=== PATIENT | female | born 1935 | race Caucasian/White ===

== ENCOUNTER 2017-09-24 17:04 | Inpatient (IN) | payer BC ==
[~2017-09-24] VITALS: Ht 170.2 cm; Wt 98.2 kg
[2017-09-24 17:26] VITALS: BP 213/88; PULSE 75; RESP 20; O2SAT 100
[2017-09-24] MEDS ORDERED: ONDANSETRON HCL 4 MG/2 ML VIAL IV PUSH ONE (17:30)
[2017-09-24] MEDS ORDERED: MORPHINE SULFATE 4 MG/ML INJ IV PUSH ONE ×2 (17:30→19:00)
[2017-09-24] MEDS ORDERED: HYDROCHLOROTHIAZIDE (17:39)
[2017-09-24] MEDS ORDERED: AMLO5 PO (17:39)
[2017-09-24] MEDS ORDERED: [UNRECOGNIZED DRUG - OTHER] (17:39)
[2017-09-24] MEDS ORDERED: AERIUS (17:39)
[2017-09-24] MEDS ORDERED: CELE200C PO (17:39)
[2017-09-24] MEDS ORDERED: PREV30CA36 PO (17:39)
[2017-09-24] MEDS ORDERED: ALLOPURINOL (17:40)
[2017-09-24] MEDS ORDERED: SODIUM CHLORIDE 0.9% FLUSH 10 ML FLUSH IVF PRN (17:45)
--- NOTE | 2017-09-24 18:31 | PD ---
HPI Chief Complaint: Fall Time Seen by Provider: 17:24 Travel History International Travel<30 days: No Contact w/Intl Traveler<30days: No Traveled to known affect area: No History of Present Illness HPI 53-year-old female came to the emergency room with history of dizziness, near syncopal episode and fall after she was coming out of the shower. Patient lives by herself. Somehow she managed calling 911. When EMS arrived she was wedged between the bathroom door and the corridor. She was complaining of severe right leg pain all the way from the hip down to her ankle. They have to put a splint and put her on a backboard to get her safely out of the house. Patient is from [facility] and speaks mostly Nigerien. However she is able to give a meaningful history. She is also complaining of pain on the upper back and both shoulders. Patient was hypertensive upon arrival. But she also appeared to be very anxious and in pain. She was medicated for pain on route by the EMS. Patient is not on any blood thinners. [facility] Past Medical History Narrative Medical List of her past medical, surgical, social and family history is reviewed from the nursing note. Hypertension: Yes Past Surgical History Appendectomy: Yes Hysterectomy: Yes Social History Alcohol Use: No Tobacco Use: No Substance Use: No Allergies-Medications (Allergen,Severity, Reaction): Coded Allergies: No Known Allergies (Unverified , 09/24/17) Comments no known drug allergies. Reported Meds & Prescriptions Reported Meds & Active Scripts Active Reported [Apoallopurinal] 100 [Aerius] 5 DAILY Prevacid (Lansoprazole) 30 Mg Capdr 30 Mg PO DAILY Celebrex (Celecoxib) 200 Mg Cap 200 Mg PO BID [Teveten Plus] 60,012.5 DAILY Norvasc (Amlodipine Besylate) 5 Mg Tab 5 Mg PO DAILY Narrative Medication List of her home medications reviewed from the nursing note. Review of Systems Except as stated in HPI: all other systems reviewed are Neg Neurologic: Positive: Dizziness Physical Exam Narrative GENERAL: Obese, anxious, moderate to significant distress, boarded SKIN: Focused skin assessment warm/dry. HEAD: Atraumatic. Normocephalic. EYES: Pupils equal and round. No scleral icterus. No injection or drainage. ENT: No nasal bleeding or discharge. Mucous membranes pink and moist. NECK: Trachea midline. No JVD. CARDIOVASCULAR: Regular rate and rhythm. No murmur appreciated. RESPIRATORY: No accessory muscle use. Clear to auscultation. Breath sounds equal bilaterally. GASTROINTESTINAL: Abdomen soft, non-tender, nondistended. Hepatic and splenic margins not palpable. MUSCULOSKELETAL: Right ankle swollen but distal pulses present. No clubbing. No cyanosis. No edema. Decreased range of motion at the right hip, right knee and right ankle joint due to the pain. Patient was rolled off the backboard and the spine was palpated by me. Patient was complaining of midthoracic tenderness on palpation. No step-offs noticed NEUROLOGICAL: Awake and alert. No obvious cranial nerve deficits. Motor grossly within normal limits. Normal speech. PSYCHIATRIC: Appropriate mood and affect; insight and judgment normal. Data Data Last Documented VS Orders Orders Ondansetron Inj (Zofran Inj) (09/24/17 17:30) Morphine Inj (Morphine Inj) (09/24/17 17:30) Hip, Uni(Ap&Lat) W Ap Pelvis (09/24/17 ) Knee, Complete (4vws) (09/24/17 ) Knee, Complete (4vws) (09/24/17 ) Tibia/Fibula (Ap/Lat) (09/24/17 ) Femur (Ap & Lat/2vws) (09/24/17 ) Ct Brain W/O Iv Contrast(Rout) (09/24/17 ) Apply Cervical Collar (09/24/17 17:30) Ct Cerv Spine W/O Contrast (09/24/17 ) Chest, Single Ap (09/24/17 ) Spine, Thoracic-Ap/Lat/Sw(3vw) (09/24/17 ) Electrocardiogram (09/24/17 17:44) Basic Metabolic Panel (Bmp) (09/24/17 17:44) Ckmb (Isoenzyme) Profile (09/24/17 17:44) Complete Blood Count With Diff (09/24/17 17:44) Magnesium (Mg) (09/24/17 17:44) Prothrombin Time / Inr (Pt) (09/24/17 17:44) Troponin I (09/24/17 17:44) Ecg Monitoring (09/24/17 17:44) Bilateral Bp Monitoring (09/24/17 17:44) Iv Access Insert/Monitor (09/24/17 17:44) Oximetry (09/24/17 17:44) Oxygen Administration (09/24/17 17:44) Sodium Chloride 0.9% Flush (Ns Flush) (09/24/17 17:45) Splinting (09/24/17 ) Morphine Inj (Morphine Inj) (09/24/17 19:00) Admit Order (Ed Use Only) (09/24/17 ) Sound Engineering Technician / Telemetry MEIR.Q8H (09/24/17 21:18) Activity Bed Rest (09/24/17 21:18) Notify Dr: Other (09/24/17 21:18) Consult Orthopedic (09/24/17 ) Labs Laboratory Tests Test 09/24/17 19:45 White Blood Count 13.7 TH/MM3 Red Blood Count 4.46 MIL/MM3 Hemoglobin 12.1 GM/DL Hematocrit 37.4 % Mean Corpuscular Volume 84.0 FL Mean Corpuscular Hemoglobin 27.2 PG Mean Corpuscular Hemoglobin Concent 32.3 % Red Cell Distribution Width 13.2 % Platelet Count 257 TH/MM3 Mean Platelet Volume 7.8 FL Neutrophils (%) (Auto) 75.0 % Lymphocytes (%) (Auto) 13.8 % Monocytes (%) (Auto) 8.4 % Eosinophils (%) (Auto) 1.6 % Basophils (%) (Auto) 1.2 % Neutrophils # (Auto) 10.3 TH/MM3 Lymphocytes # (Auto) 1.9 TH/MM3 Monocytes # (Auto) 1.1 TH/MM3 Eosinophils # (Auto) 0.2 TH/MM3 Basophils # (Auto) 0.2 TH/MM3 CBC Comment DIFF FINAL Differential Comment Prothrombin Time 11.0 SEC Prothromb Time International Ratio 1.0 RATIO Blood Urea Nitrogen 18 MG/DL Creatinine 1.59 MG/DL Random Glucose 82 MG/DL Calcium Level 8.8 MG/DL Magnesium Level 1.7 MG/DL Sodium Level 139 MEQ/L Potassium Level 4.0 MEQ/L Chloride Level 108 MEQ/L Carbon Dioxide Level 20.1 MEQ/L Anion Gap 11 MEQ/L Estimat Glomerular Filtration Rate 31 ML/MIN Total Creatine Kinase 56 U/L Troponin I LESS THAN 0.02 NG/ML MDM Medical Decision Making Medical Screen Exam Complete: Yes Emergency Medical Condition: Yes Medical Record Reviewed: Yes Interpretation(s) Twelve-lead EKG was reviewed by me. Normal sinus rhythm, left axis deviation, nonspecific ST-T wave changes. Heart rate of 63 bpm. Differential Diagnosis ankle fracture, knee fracture, hip fracture, intracranial bleed, cervical fracture Narrative Course 6:29 PM patient was medicated for pain. I have ordered x-rays of the lower extremities and CAT scan of her head and C-spine. For the x-ray and CAT scan to be done and resulted. Patient most probably will be signed off to the oncoming ER physician. 6:52 PM x-rays are done and I reviewed them myself. The only traumatic injury is right bimalleolar fracture. I have ordered for a Bhatt splint and awaiting for the orthopedist to call back. Official report is pending. CT scan waiting to be done. I have ordered some more pain medication. Procedures EKG Prior to Arrival: No Diagnosis Primary Impression: Near syncope Additional Impression: Fall Qualified Codes: W19.XXXA - Unspecified fall, initial encounter Admitting Information Admitting Physician Requests: Admit Scripts Enoxaparin Inj (Lovenox Inj) 40 Mg/0.4 Ml Syr 40 MG SQ Q24H for Prevent Blood Clot, #30 INJECTION Prov: Dewey Leal MD 09/28/17 Hydrocodone-Acetaminophen (Hydrocodone-Acetaminophen) 7.5 Mg-325 Mg Tab 1 TAB PO Q4H Y for PAIN, #60 TAB 0 Refills Prov: Vel Ward/Laboratory Secretary CECY 09/25/17 Zayra Fierro MD Sep 24, 2017 18:31
--- NOTE | 2017-09-24 18:51 | RADRPT ---
EXAM DATE/TIME: 09/24/2017 17:51 [facility] COMPARISON: No previous studies available for comparison. INDICATIONS : Fall in shower, pain in chest, short of breath. MEDICAL HISTORY : Hypertension. SURGICAL HISTORY : Hysterectomy. Appendectomy. ENCOUNTER: Initial ACUITY: 1 day PAIN SCORE: 0/10 LOCATION: Bilateral chest FINDINGS: A single view of the chest demonstrates the lungs to be symmetrically aerated without evidence of mas s, infiltrate or effusion. No evidence of pneumothorax. The cardiomediastinal contours are unremark able. Osseous structures are intact. CONCLUSION: The lungs are clear. Alfred Abraham MD on September 24, 2017 at 18:49 Board Certified Radiologist. This report was verified electronically.
--- NOTE | 2017-09-24 18:52 | RADRPT ---
EXAM DATE/TIME: 09/24/2017 17:52 [facility] COMPARISON: No previous studies available for comparison. INDICATIONS : Right hip pain after falling today. MEDICAL HISTORY : Hypertension. SURGICAL HISTORY : Appendectomy. Hysterectomy. Right total hip replacement. ENCOUNTER: Initial ACUITY: 1 day PAIN SCORE: 5/10 LOCATION: Right hip FINDINGS: 2 views of the right hip with AP view of the pelvis. There is a non-cemented unipolar total hip arth roplasty on the right side with intact hardware and normal alignment. The bony pelvic ring is grossl y intact the proximal left femur is intact. No radiopaque foreign bodies. CONCLUSION: Intact right total hip arthroplasty. The bony pelvic ring is intact. Alfred Abraham MD on September 24, 2017 at 18:49 Board Certified Radiologist. This report was verified electronically.
--- NOTE | 2017-09-24 18:53 | RADRPT ---
EXAM DATE/TIME: 09/24/2017 17:53 [facility] COMPARISON: No previous studies available for comparison. INDICATIONS : Right femur pain after falling today. MEDICAL HISTORY : Hypertension. SURGICAL HISTORY : Appendectomy. Hysterectomy. Right total hip replacement. ENCOUNTER: Initial ACUITY: 1 day PAIN SCORE: 5/10 LOCATION: Right femur FINDINGS: Noncemented unipolar total hip arthroplasty with intact hardware and normal alignment. The shaft of the femur is intact. No fractures seen. The suprapatellar soft tissues are normal in thickness. No radiopaque foreign bodies. CONCLUSION: No evidence of recent bony injury. Alfred Abraham MD on September 24, 2017 at 18:50 Board Certified Radiologist. This report was verified electronically.
--- NOTE | 2017-09-24 18:54 | RADRPT ---
EXAM DATE/TIME: 09/24/2017 17:55 [facility] COMPARISON: No previous studies available for comparison. INDICATIONS : Right knee pain after falling today. MEDICAL HISTORY : Hypertension. SURGICAL HISTORY : Appendectomy. Hysterectomy. Right total hip replacement. ENCOUNTER: Initial ACUITY: 1 day PAIN SCORE: 5/10 LOCATION: Right knee FINDINGS: There is mild narrowing of the medial compartment without osteophyte formation. Tibial plateau femor al condyles are intact. The suprapatellar soft tissues are normal in thickness. No fracture seen. No foreign bodies. CONCLUSION: 1. No evidence of recent injury. 2. Mild medial compartment joint space narrowing. Alfred Abraham MD on September 24, 2017 at 18:51 Board Certified Radiologist. This report was verified electronically.
--- NOTE | 2017-09-24 18:56 | RADRPT ---
EXAM DATE/TIME: 09/24/2017 17:58 [facility] COMPARISON: No previous studies available for comparison. INDICATIONS : Back pain after falling in the shower today. MEDICAL HISTORY : Hypertension. SURGICAL HISTORY : Hysterectomy. Appendectomy. ENCOUNTER: Initial ACUITY: 1 day PAIN SCORE: 5/10 LOCATION: Bilateral back FINDINGS: There is normal alignment of the vertebral bodies of the thoracic spine in lateral projection. Mild curvature of the lower thoracic spine convex towards the right. Multilevel discogenic degenerative c hanges with bridging paravertebral ossification from T6-T11. No evidence of fracture or compression deformity. Pedicles are seen at all levels. CONCLUSION: 1. No evidence of compression deformity or spondylolisthesis. 2. Moderately advanced paravertebral ossification related to discogenic changes. Alfred Abraham MD on September 24, 2017 at 18:52 Board Certified Radiologist. This report was verified electronically.
[2017-09-24 19:06] VITALS: BP 157/87; PULSE 62; RESP 18; TEMP 99.4; O2SAT 100
--- NOTE | 2017-09-24 19:18 | PD ---
Physical Exam Date Seen by Provider: Sep 24, 2017 Time Seen by Provider: 19:17 Narrative Accepted in transfer of care from Dr. Fierro Data Data Last Documented VS Vital Signs Date Time Temp Pulse Resp B/P (MAP) Pulse Ox O2 Delivery O2 Flow Rate FiO2 09/24/17 19:06 99.4 62 18 157/87 (110) 100 Room Air Orders Orders Ondansetron Inj (Zofran Inj) (09/24/17 17:30) Morphine Inj (Morphine Inj) (09/24/17 17:30) Hip, Uni(Ap&Lat) W Ap Pelvis (09/24/17 ) Knee, Complete (4vws) (09/24/17 ) Knee, Complete (4vws) (09/24/17 ) Tibia/Fibula (Ap/Lat) (09/24/17 ) Femur (Ap & Lat/2vws) (09/24/17 ) Ct Brain W/O Iv Contrast(Rout) (09/24/17 ) Apply Cervical Collar (09/24/17 17:30) Ct Cerv Spine W/O Contrast (09/24/17 ) Chest, Single Ap (09/24/17 ) Spine, Thoracic-Ap/Lat/Sw(3vw) (09/24/17 ) Electrocardiogram (09/24/17 17:44) Basic Metabolic Panel (Bmp) (09/24/17 17:44) Ckmb (Isoenzyme) Profile (09/24/17 17:44) Complete Blood Count With Diff (09/24/17 17:44) Magnesium (Mg) (09/24/17 17:44) Prothrombin Time / Inr (Pt) (09/24/17 17:44) Troponin I (09/24/17 17:44) Ecg Monitoring (09/24/17 17:44) Bilateral Bp Monitoring (09/24/17 17:44) Iv Access Insert/Monitor (09/24/17 17:44) Oximetry (09/24/17 17:44) Oxygen Administration (09/24/17 17:44) Sodium Chloride 0.9% Flush (Ns Flush) (09/24/17 17:45) Splinting (09/24/17 ) Morphine Inj (Morphine Inj) (09/24/17 19:00) Labs Laboratory Tests Test 09/24/17 19:45 White Blood Count 13.7 TH/MM3 Red Blood Count 4.46 MIL/MM3 Hemoglobin 12.1 GM/DL Hematocrit 37.4 % Mean Corpuscular Volume 84.0 FL Mean Corpuscular Hemoglobin 27.2 PG Mean Corpuscular Hemoglobin Concent 32.3 % Red Cell Distribution Width 13.2 % Platelet Count 257 TH/MM3 Mean Platelet Volume 7.8 FL Neutrophils (%) (Auto) 75.0 % Lymphocytes (%) (Auto) 13.8 % Monocytes (%) (Auto) 8.4 % Eosinophils (%) (Auto) 1.6 % Basophils (%) (Auto) 1.2 % Neutrophils # (Auto) 10.3 TH/MM3 Lymphocytes # (Auto) 1.9 TH/MM3 Monocytes # (Auto) 1.1 TH/MM3 Eosinophils # (Auto) 0.2 TH/MM3 Basophils # (Auto) 0.2 TH/MM3 CBC Comment DIFF FINAL Differential Comment Prothrombin Time 11.0 SEC Prothromb Time International Ratio 1.0 RATIO Blood Urea Nitrogen 18 MG/DL Creatinine 1.59 MG/DL Random Glucose 82 MG/DL Calcium Level 8.8 MG/DL Magnesium Level 1.7 MG/DL Sodium Level 139 MEQ/L Potassium Level 4.0 MEQ/L Chloride Level 108 MEQ/L Carbon Dioxide Level 20.1 MEQ/L Anion Gap 11 MEQ/L Estimat Glomerular Filtration Rate 31 ML/MIN Total Creatine Kinase 56 U/L Troponin I LESS THAN 0.02 NG/ML [facility] Medical Record Reviewed: Yes Supervised Visit with ISAC: No Interpretation(s) Last Impressions Tibia/Fibula X-Ray 09/24/17 0000 Signed Impressions: Service Date/Time: Sunday, September 24, 2017 18:02 - CONCLUSION: Trimalleolar ankle fracture. Alfred Abraham MD Thoracic Spine X-Ray 09/24/17 0000 Signed Impressions: Service Date/Time: Sunday, September 24, 2017 17:58 - CONCLUSION: 1. No evidence of compression deformity or spondylolisthesis. 2. Moderately advanced paravertebral ossification related to discogenic changes. Alfred Abraham MD Knee X-Ray 09/24/17 0000 Signed Impressions: Service Date/Time: Sunday, September 24, 2017 18:13 - CONCLUSION: No evidence of recent bony injury. Alfred Abraham MD Knee X-Ray 09/24/17 0000 Signed Impressions: Service Date/Time: Sunday, September 24, 2017 17:55 - CONCLUSION: 1. No evidence of recent injury. 2. Mild medial compartment joint space narrowing. Alfred Abraham MD Hip and Pelvis X-Ray 09/24/17 0000 Signed Impressions: Service Date/Time: Sunday, September 24, 2017 17:52 - CONCLUSION: Intact right total hip arthroplasty. The bony pelvic ring is intact. Alfred Abraham MD Head CT 09/24/17 0000 Signed Impressions: Service Date/Time: Sunday, September 24, 2017 18:19 - CONCLUSION: Age-appropriate atrophy. No acute findings. Alfred Abraham MD Femur X-Ray 09/24/17 0000 Signed Impressions: Service Date/Time: Sunday, September 24, 2017 17:53 - CONCLUSION: No evidence of recent bony injury. Alfred Abraham MD Chest X-Ray 09/24/17 0000 Signed Impressions: Service Date/Time: Sunday, September 24, 2017 17:51 - CONCLUSION: The lungs are clear. Alfred Abraham MD Cervical Spine CT 09/24/17 0000 Signed Impressions: Service Date/Time: Sunday, September 24, 2017 18:19 - CONCLUSION: 1. No evidence of fracture or subluxation. 2. Multilevel degenerative changes. Alfred Abraham MD CBC & BMP Diagram 09/24/17 19:45 Calcium Level 8.8, Magnesium Level 1.7 Vital Signs Date Time Temp Pulse Resp B/P (MAP) Pulse Ox O2 Delivery O2 Flow Rate FiO2 09/24/17 19:06 99.4 62 18 157/87 (110) 100 Room Air 09/24/17 17:26 75 20 213/88 (129) 100 Differential Diagnosis Accepted in transfer of care from Dr. Fierro; please refer to her dictation Narrative Course Accepted in transfer of care from Dr. Fierro for follow up pending labs xray ct and admission; per Dr Fierro she has already discussed ankle fx w orthopedist Dr Ambriz and splinted ankle Diagnosis Primary Impression: Near syncope Additional Impressions: Fall Qualified Codes: W19.XXXA - Unspecified fall, initial encounter Trimalleolar fracture Qualified Codes: S82.851A - Displaced trimalleolar fracture of right lower leg , initial encounter for closed fracture Admitting Information Admitting Physician Requests: Admit Corinne Melo MD Sep 24, 2017 19:18
--- NOTE | 2017-09-24 19:20 | RADRPT ---
EXAM DATE/TIME: 09/24/2017 18:02 [facility] COMPARISON: No previous studies available for comparison. INDICATIONS : Left tibia pain after falling today. MEDICAL HISTORY : Hypertension. SURGICAL HISTORY : Hysterectomy. Appendectomy. ENCOUNTER: Initial ACUITY: 1 day PAIN SCORE: 5/10 LOCATION: Right tib fib FINDINGS: There is a trimalleolar fracture of the ankle with mild displacement and angulation. The remainder o f the shaft of the tibia and fibula is intact. No radiopaque foreign bodies. CONCLUSION: Trimalleolar ankle fracture. Alfred Abraham MD on September 24, 2017 at 19:18 Board Certified Radiologist. This report was verified electronically.
--- NOTE | 2017-09-24 19:21 | RADRPT ---
EXAM DATE/TIME: 09/24/2017 18:13 [facility] COMPARISON: No previous studies available for comparison. INDICATIONS : Left knee pain after falling today. MEDICAL HISTORY : Hypertension. SURGICAL HISTORY : Appendectomy. Hysterectomy. Right total hip replacement. ENCOUNTER: Initial ACUITY: 1 day PAIN SCORE: 5/10 LOCATION: Left knee FINDINGS: Four view examination of the left knee demonstrates no evidence of fracture or dislocation. Bony min eralization is normal. The articular surfaces are intact. The suprapatellar soft tissues have a nor mal configuration. CONCLUSION: No evidence of recent bony injury. Alfred Abraham MD on September 24, 2017 at 19:19 Board Certified Radiologist. This report was verified electronically.
[2017-09-24 20:01] LABS: AUTOMATED NEUTROPHIL # 10.3 TH/MM3 (1.8-7.7); BASOPHIL # 0.2 TH/MM3 (0-0.2); BASOPHIL % 1.2 % (0.0-2.0); EOSINOPHIL # 0.2 TH/MM3 (0-0.4); EOSINOPHIL % 1.6 % (0.0-4.0); HEMATOCRIT 37.4 % (35.0-46.0); HEMO FLAGS DIFF FINAL; LYMPH % 13.8 % (9.0-44.0); LYMPHOCYTE # 1.9 TH/MM3 (1.0-4.8); MEAN CORPUSCULAR HEMOGLOBIN 27.2 PG (27.0-34.0); MEAN CORPUSCULAR HGB CONC 32.3 % (32.0-36.0); MONO % 8.4 % (0.0-8.0); PLATELET COUNT 257 TH/MM3 (150-450); RED BLOOD COUNT 4.46 MIL/MM3 (4.00-5.30); RED CELL DISTRIBUTION WIDTH 13.2 % (11.6-17.2); WHITE BLOOD COUNT 13.7 TH/MM3 (4.0-11.0)
--- NOTE | 2017-09-24 20:03 | RADRPT ---
EXAM DATE/TIME: 09/24/2017 18:19 [facility] COMPARISON: No previous studies available for comparison. INDICATIONS : Fell in shower,dizzy RADIATION DOSE: 56.35 CTDIvol (mGy) MEDICAL HISTORY : Hypertension. SURGICAL HISTORY : Appendectomy. Hysterectomy. ENCOUNTER: Initial ACUITY: 1 day PAIN SCALE: 3/10 LOCATION: cranial TECHNIQUE: Multiple contiguous axial images were obtained of the head. Using automated exposure control and adj ustment of the mA and/or kV according to patient size, radiation dose was kept as low as reasonably a chievable to obtain optimal diagnostic quality images. DICOM format image data is available electro nically for review and comparison. FINDINGS: CEREBRUM: The ventricles are normal for age. No evidence of midline shift, mass lesion, hemorrhage or acute in farction. No extra-axial fluid collections are seen. POSTERIOR FOSSA: The cerebellum and brainstem are intact. The 4th ventricle is midline. The cerebellopontine angle i s unremarkable. EXTRACRANIAL: The visualized portion of the orbits is intact. SKULL: The calvaria is intact. No evidence of skull fracture. CONCLUSION: Age-appropriate atrophy. No acute findings. Alfred Abraham MD on September 24, 2017 at 19:59 Board Certified Radiologist. This report was verified electronically.
[2017-09-24 20:21] LABS: ANION GAP 11 MEQ/L (5-15); BICARBONATE 20.1 MEQ/L (21.0-32.0); BLOOD UREA NITROGEN 18 MG/DL (7-18); CHLORIDE 108 MEQ/L (98-107); GLOMERULAR FILTRATION RATE 31 ML/MIN (>89); MAGNESIUM 1.7 MG/DL (1.5-2.5); SODIUM (NA) 139 MEQ/L (136-145)
[2017-09-24 20:26] LABS: CREATINE KINASE 56 U/L (26-192)
--- NOTE | 2017-09-24 20:57 | RADRPT ---
EXAM DATE/TIME: 09/24/2017 18:19 [facility] COMPARISON: No previous studies available for comparison. INDICATIONS : Fell in shower,dizzy RADIATION DOSE: 42.44 CTDIvol (mGy) MEDICAL HISTORY : Hypertension. SURGICAL HISTORY : Appendectomy. Hysterectomy. ENCOUNTER: Initial ACUITY: 1 day PAIN SCALE: 3/10 LOCATION: neck TECHNIQUE: Volumetric scanning of the cervical spine was performed. Multiplanar reconstructions in the sagittal, coronal and oblique axial planes were performed. Using automated exposure control and adjustment o f the mA and/or kV according to patient size, radiation dose was kept as low as reasonably achievable to obtain optimal diagnostic quality images. DICOM format image data is available electronically f or review and comparison. FINDINGS: Osseous structures are osteopenic. There is straightening of the cervical lordosis from C2-C4. Mild narrowing of the C4-5 and C5-6 interspace with prominent anterior and posterior osteophytes. No khadijah dence of compression deformity. Moderate degenerative changes in the facet joints without evidence o f locked or perched facets. The atlantoaxial articulation is intact. Mild curvature of the cervical spine convex towards the left. C2-C3: No fracture seen. The neural foramina are patent. C3-C4: No fracture seen. Mild left sided bony neural foraminal stenosis. C4-C5: No fracture seen. The neural foramina are patent. C5-C6: No fracture seen. The neural foramina are patent. C6-C7: No fracture seen. The neural foramina are patent. C7-T1: No fracture seen. The neural foramina are patent. CONCLUSION: 1. No evidence of fracture or subluxation. 2. Multilevel degenerative changes. Alfred Abraham MD on September 24, 2017 at 20:02 Board Certified Radiologist. This report was verified electronically.
[2017-09-24] MEDS ORDERED: SODIUM CHLORIDE 0.9% FLUSH 10 ML FLUSH IV FLUSH PRN (22:00)
--- NOTE | 2017-09-24 22:06 | HHI.HP ---
[facility] Service [facility] Primary Care Physician Unknown Admission Diagnosis near syncope; trimalleolar fracture Diagnoses: Travel History International Travel<30 Days: No Contact w/Intl Traveler <30 Da: No Traveled to Known Affected Are: No History of Present Illness 82-year-old female got to the emergency department by EMS after suffering a fall in the shower. The patient reports that she has no memory of the fall, and is unsure if she lost consciousness. She states one moment she was standing up in the shower and the next she was on the ground. She complains of persistent pain in her right hip and right leg. X-rays performed in the emergency department significant for a trimalleolar ankle fracture. X-ray of the pelvis with no bony abnormalities. The patient had a similar syncopal episode approximately 2-3 years ago and cannot remember what workup was done at that time. She denies significant cardiovascular or neurologic history. She is a poor historian but believes she has a history of hypertension and hyperlipidemia. Review of Systems Denies fever or chills Denies blurry vision, otorrhea, rhinorrhea Denies sore throat and cough No chest pain, palpitations, shortness of breath No abdominal pain Denies constipation/diarrhea/nausea/vomiting Right hip and right lower extremity pain No rashes Past Family Social History Past Medical History Hypertension Hyperlipidemia Past Surgical History Right hip replacement Appendectomy Hysterectomy Reported Medications Reported Meds & Active Scripts Active Reported [Apoallopurinal] 100 [Aerius] 5 DAILY Prevacid (Lansoprazole) 30 Mg Capdr 30 Mg PO DAILY Celebrex (Celecoxib) 200 Mg Cap 200 Mg PO BID [Teveten Plus] 60,012.5 DAILY Norvasc (Amlodipine Besylate) 5 Mg Tab 5 Mg PO DAILY Allergies: Coded Allergies: No Known Allergies (Unverified , 09/24/17) Family History No family history of heart disease or diabetes Social History Denies tobacco, alcohol and illicit drugs Physical Exam Vital Signs Vital Signs Date Time Temp Pulse Resp B/P (MAP) Pulse Ox O2 Delivery O2 Flow Rate FiO2 09/24/17 19:06 99.4 62 18 157/87 (110) 100 Room Air 09/24/17 17:26 75 20 213/88 (129) 100 Physical Exam GENERAL: Obese female lying in bed SKIN: No rashes, ecchymoses or lesions. Cool and dry. HEAD: Atraumatic. Normocephalic. No temporal or scalp tenderness. EYES: Pupils equal round and reactive. Extraocular motions intact. No scleral icterus. No injection or drainage. ENT: Nose without bleeding, purulent drainage or septal hematoma. Throat without erythema, tonsillar hypertrophy or exudate. Uvula midline. Airway patent. NECK: Trachea midline. No JVD or lymphadenopathy. Supple, nontender, no meningeal signs. CARDIOVASCULAR: Regular rate and rhythm without murmurs, gallops, or rubs. RESPIRATORY: Clear to auscultation. Breath sounds equal bilaterally. No wheezes , rales, or rhonchi. GASTROINTESTINAL: Abdomen soft, non-tender, nondistended. No hepato-splenomegaly , or palpable masses. No guarding. MUSCULOSKELETAL: Right lower extremity splinted. Foot is neurovascularly intact. Right lateral upper thigh and hip tender to palpation. No gross deformities or ecchymoses. NEUROLOGICAL: Awake and alert. Cranial nerves II through XII intact. Motor and sensory grossly within normal limits. Normal speech. Laboratory Laboratory Tests Test 09/24/17 19:45 White Blood Count 13.7 Red Blood Count 4.46 Hemoglobin 12.1 Hematocrit 37.4 Mean Corpuscular Volume 84.0 Mean Corpuscular Hemoglobin 27.2 Mean Corpuscular Hemoglobin Concent 32.3 Red Cell Distribution Width 13.2 Platelet Count 257 Mean Platelet Volume 7.8 Neutrophils (%) (Auto) 75.0 Lymphocytes (%) (Auto) 13.8 Monocytes (%) (Auto) 8.4 Eosinophils (%) (Auto) 1.6 Basophils (%) (Auto) 1.2 Neutrophils # (Auto) 10.3 Lymphocytes # (Auto) 1.9 Monocytes # (Auto) 1.1 Eosinophils # (Auto) 0.2 Basophils # (Auto) 0.2 CBC Comment DIFF FINAL Differential Comment Prothrombin Time 11.0 Prothromb Time International Ratio 1.0 Blood Urea Nitrogen 18 Creatinine 1.59 Random Glucose 82 Calcium Level 8.8 Magnesium Level 1.7 Sodium Level 139 Potassium Level 4.0 Chloride Level 108 Carbon Dioxide Level 20.1 Anion Gap 11 Estimat Glomerular Filtration Rate 31 Total Creatine Kinase 56 Troponin I LESS THAN 0.02 Result Diagram: 09/24/17194409/24/171944 Caprini VTE Risk Assessment Courtney VTE Risk Assessment: Mod/High Risk (score >= 2) Edrini Risk Assessment Model Point Value = 1 Point Value = 2 Point Value = 3 Point Value = 5 Age 41-60 Minor surgery BMI > 25 kg/m2 Swollen legs Varicose veins or History of unexplained or recurrent spontaneous Oral contraceptives or hormone replacement Sepsis (< 1 month) Serious lung disease, including pneumonia (< 1 month) Abnormal pulmonary function Acute myocardial infarction Congestive heart failure (< 1 month) History of inflammatory bowel disease Medical patient at bed rest Age 61-74 Arthroscopic surgery Major open surgery (> 45 min) Laparoscopic surgery (> 45 min) Malignancy Confined to bed (> 72 hours) Immobilizing plaster cast Central venous access Age >= 75 History of VTE Family history of VTE Factor V Leiden Prothrombin [id number] Lupus anticoagulant Anticardiolipin antibodies Elevated serum homocysteine Heparin-induced thrombocytopenia Other congenital or acquired thrombophilia Stroke (< 1 month) Elective arthroplasty Hip, pelvis, or leg fracture Acute spinal cord injury (< 1 month) Prophylaxis Regimen Total Risk Factor Score Risk Level Prophylaxis Regimen 0-1 Low Early ambulation 2 Moderate Order ONE of the following: *Sequential Compression Device (SCD) *Heparin 5000 units SQ BID 3-4 Higher Order ONE of the following medications: *Heparin 5000 units SQ TID *Enoxaparin/Lovenox 40 mg SQ daily (WT < 150 kg, CrCl > 30 mL/min) *Enoxaparin/Lovenox 30 mg SQ daily (WT < 150 kg, CrCl > 10-29 mL/min) *Enoxaparin/Lovenox 30 mg SQ BID (WT < 150 kg, CrCl > 30 mL/min) AND/OR *Sequential Compression Device (SCD) 5 or more Highest Order ONE of the following medications: *Heparin 5000 units SQ TID (Preferred with Epidurals) *Enoxaparin/Lovenox 40 mg SQ daily (WT < 150 kg, CrCl > 30 mL/min) *Enoxaparin/Lovenox 30 mg SQ daily (WT < 150 kg, CrCl > 10-29 mL/min) *Enoxaparin/Lovenox 30 mg SQ BID (WT < 150 kg, CrCl > 30 mL/min) AND *Sequential Compression Device (SCD) Assessment and Plan Assessment and Plan 82-year-old female with past medical history significant for hypertension and hyperlipidemia presents after syncopal episode where she sustained a trimalleolar fracture. 1. Trimalleolar fracture of right extremity Orthopedic surgery consulted, anticipate surgical repair in the morning Nothing by mouth Morphine for pain 2. Syncopal episode EKG with nonspecific ST-T wave changes. Heart rate 63. Normal sinus rhythm. Reviewed by me Syncopal workup pending including echo and carotid ultrasound 3. Hypertension/GERD Continue home medications FEN NPO NS at 100 cc/hr Electrolytes: Replete when necessary Holding pharmacologic anticoagulation in anticipation of procedure tomorrow Physician Certification 2 Midnight Certification Type: Admission for Inpatient Services Order for Inpatient Services The services are ordered in accordance with Medicare regulations or non- Medicare payer requirements, as applicable. In the case of services not specified as inpatient-only, they are appropriately provided as inpatient services in accordance with the 2-midnight benchmark. Estimated LOS (days): 2 2 days is the estimated time the patient will need to remain in the hospital, assuming treatment plan goals are met and no additional complications. Post-Hospital Plan: Not yet determined Alessandra Wilkerson MD Sep 24, 2017 22:06
[2017-09-24 22:28] VITALS: BP 172/74; PULSE 68; RESP 18; O2SAT 99
[2017-09-24] MEDS: SODIUM CHLOR 0.9% 1000 ML INJ 1,000 ML IV SCH (22:34)
--- NOTE | 2017-09-24 22:56 | RADRPT ---
EXAM DATE/TIME: 09/24/2017 21:58 [facility] COMPARISON: No previous studies available for comparison. INDICATIONS : Syncope. MEDICAL HISTORY : Hypertension. SURGICAL HISTORY : Appendectomy. Hysterectomy. Right hip surgery. ENCOUNTER: Initial ACUITY: 1 day PAIN SCORE: 3/10 LOCATION: Bilateral neck PEAK SYSTOLIC VELOCITIES (cm/sec): ICA/CCA RATIO: Right: N/A Left: 2.7 ICA: Right: N/A Left: 184.4 CCA: Right: 75.8 Left: 66.9 ECA: Right: 170.1 Left: 67.0 VERTEBRAL: Right: 62.9 antegrade Left: 45.1 antegrade Elevated flow velocities and ICA/CCA ratios have been found to correlate with increased degrees of vessel stenosis, calculated as percentage of diameter relative to a normal segment of distal ICA/CCA FINDINGS: This is a limited quality examination with poor visualization of the internal carotid artery on both sides related to body habitus. Unable to record a velocity tracing in the mid right internal carotid artery on either color or spectral Doppler. The velocity in the left internal carotid artery is eb vated and the velocity ratio is elevated. CONCLUSION: 1. Nondiagnostic study on the right side and cannot confirm the presence of internal carotid artery f low. 2. Abnormal hemodynamic profile on the left side characteristic of 50-70% stenosis. 3. May consider performing either CTA or MRA to further evaluate for the presence of flow in the righ t carotid and to characterize the severity of disease on left side. Alfred Abraham MD on September 24, 2017 at 22:52 Board Certified Radiologist. This report was verified electronically.
[2017-09-24] MEDS: MORPHINE SULFATE 2 MG/ML INJ IV PUSH PRN (23:11)
[2017-09-25] VITALS (7 sets, daily range): BP systolic 118–156; BP diastolic 51–68; PULSE 64–88; RESP 17–19; TEMP 95.9–100; O2SAT 93–99
[2017-09-25] MEDS ORDERED: LACTATED RINGER'S 1000 ML IV PRN (02:30)
[2017-09-25] MEDS ORDERED: METOPROLOL TARTRATE 25 MG TAB PO PRN (02:30)
[2017-09-25] MEDS ORDERED: INSULIN HUMAN REGULAR 1,000 UNITS/10 ML VIAL SQ PRN (02:30)
[2017-09-25] MEDS ORDERED: POVIDONE IODINE 5% (ANTISEPSIS KIT) 4 APPLICATIONS EACH NARE PRN (02:30)
[2017-09-25] MEDS ORDERED: CHLORHEXIDINE GLUCONATE 2 % 1 PACK (2 CLOTHS) TOPICAL PRN (02:30)
[2017-09-25] MEDS ORDERED: SODIUM CHLORID 0.9% 500 ML IV PRN (02:30)
[2017-09-25] MEDS: MORPHINE SULFATE 2 MG/ML INJ IV PUSH PRN (05:24)
[2017-09-25 05:35] LABS: AUTOMATED NEUTROPHIL # 6.4 TH/MM3 (1.8-7.7); BASOPHIL # 0.1 TH/MM3 (0-0.2); BASOPHIL % 1.3 % (0.0-2.0); EOSINOPHIL # 0.4 TH/MM3 (0-0.4); EOSINOPHIL % 3.6 % (0.0-4.0); HEMATOCRIT 35.6 % (35.0-46.0); HEMO FLAGS DIFF FINAL; LYMPH % 17.7 % (9.0-44.0); LYMPHOCYTE # 1.8 TH/MM3 (1.0-4.8); MEAN CELL VOLUME 84.9 FL (80.0-100.0); MEAN CORPUSCULAR HEMOGLOBIN 27.8 PG (27.0-34.0); MEAN CORPUSCULAR HGB CONC 32.8 % (32.0-36.0); MONO % 12.4 % (0.0-8.0); PLATELET COUNT 219 TH/MM3 (150-450); RED BLOOD COUNT 4.19 MIL/MM3 (4.00-5.30); RED CELL DISTRIBUTION WIDTH 13.5 % (11.6-17.2); WHITE BLOOD COUNT 9.9 TH/MM3 (4.0-11.0)
[2017-09-25 06:05] LABS: BICARBONATE 21.7 MEQ/L (21.0-32.0); POTASSIUM 4.1 MEQ/L (3.5-5.1)
[2017-09-25] MEDS ORDERED: ACETAMINOPHEN 1000 MG/100 ML 0 ML IV ONE (06:15)
--- NOTE | 2017-09-25 06:58 | PD.ORT.PN ---
Subjective Subjective Remarks s/p fall at home in shower reports right wrist and knee pain Objective Vitals Vital Signs Date Time Temp Pulse Resp B/P (MAP) Pulse Ox O2 Delivery O2 Flow Rate FiO2 09/25/17 00:45 99.8 65 18 156/68 (97) 98 09/25/17 00:03 64 09/24/17 22:48 09/24/17 22:28 68 18 172/74 (106) 99 Room Air 09/24/17 19:06 99.4 62 18 157/87 (110) 100 Room Air 09/24/17 17:26 75 20 213/88 (129) 100 Result Diagram: 09/25/175 09/25/175 Other Results Laboratory Tests Test 09/24/17 19:45 Prothromb Time International Ratio 1.0 RATIO Prothrombin Time 11.0 SEC (9.8-11.6) Objective Remarks RLE: +short leg splint. intact. NVI. mild pain to touch at right knee and patella Assessment & Plan Assessment and Plan 1) Right Bimalleolar Ankle Fx -npo -consents -surgery today 2) Right knee pain -XR negative Vel Ward/Branch Office Manager CECY Sep 25, 2017 06:58
[2017-09-25] MEDS ORDERED: GENTAMICIN SULFATE 80 MG/2 ML VIAL ONE (07:10)
[2017-09-25] MEDS ORDERED: SODIUM CHLOR 0.9% 250 ML INJ 250 ML ONE (07:10)
[2017-09-25] MEDS ORDERED: VANCOMYCIN HCL 1000 MG VIAL ONE (07:10)
[2017-09-25] MEDS ORDERED: HYDR-3580 PO (07:17)
[2017-09-25] MEDS ORDERED: WHEEMIS3 (07:17)
[2017-09-25] MEDS ORDERED: WALKER/ADULT/FO1 MIS (07:17)
--- NOTE | 2017-09-25 07:18 | HHI.FF ---
Face to Face Verification Diagnosis: (1) Trimalleolar fracture Physical Therapy Gait training, Safety evaluation Right LE Weight Bearing: Non WB Nursing Dressing Changes: Do not change dressing I have seen patient Zuly Price on 09/25/17. My clinical findings support the need for the requested home health care services because: Ltd mobility - disease progression I certify that my clinical findings support that this patient is homebound because: Post-op weakness Vel Ward/Molding Room Supervisor PA Sep 25, 2017 07:18
[2017-09-25] MEDS ORDERED: ceFAZolin 2 GM PREMIX 50 ML ONE (07:39)
--- NOTE | 2017-09-25 08:12 | PD.OP ---
cc: Ihsan Bhatt MD Operative Report Date of Surgery: Sep 25, 2017 Preoperative Diagnosis: Right ankle trimalleolar fracture Postoperative Diagnosis: Procedure: Open reduction internal fixation right medial and lateral malleolus fractures Anesthesia: Gen. Surgeon: Ihsan Bhatt Deckhand Shrimp Boat(s): CARLENE Rose PA-C The surgical procedure was assisted by my physician assistant to the vice president. My P.A. presence was necessary throughout this case for the manipulation and positioning of the surgical extremity. My P.A. was assisting me throughout the duration of this procedure. The skill set of a physician assistant to the vice president was medically necessary to complete this procedure. During the surgical case the surgical orderly was working at the back table and the physician assistant to the vice president was directly assisting me. Operation and Findings: Implants used :ITS Patient was seen and evaluated preoperatively and found to have a displaced right trimalleolar ankle fracture. Informed consent was obtained after a detailed discussion of risk and benefits of surgery. The operative site was marked. Patient was brought to the OR, placed on the OR table, and given IV sedation and general endotracheal anesthesia. IV antibiotics were given preoperatively. A timeout procedure was performed. The operative leg was prepped with alcohol followed by Hibiclens and draped in the usual sterile fashion. Attention was turned towards the distal fibula. A four-inch incision was made over the distal fibula. The subcutaneous tissue was dissected with Bovie. The fracture site was visualized. The fracture site was cleaned with curets. The fracture was now reduced. The fracture keyed into anatomic alignment. K-wires were used to h old provisional fixation. A lag screw was placed to compress fracture. A plate was selected and contoured to fit the distal fibula. The plate was provisionally held to bone with K-wires. 3.5 cortical screws were used to compress the plate to bone. Multiple screws were placed above and below the fracture. Next attention was turned towards the medial malleolus. The medial malleolus was reduced into anatomic alignment with a percutaneous technique. K wires were used to hold provisional fixation. 2 guidepins for the 4.0 cannulated screws were placed in a retrograde fashion across the fracture. Fluoroscopy was used to confirm guidepin placement. Cannulated drill was placed over the guidepin. 2 appropriate length screws were now placed. Good compression was applied. Fluoroscopy confirmed well aligned fracture with well-placed hardware. Next, attention was turned to the syndesmosis. The syndesmosis was stressed. There was no widening of the syndesmosis with external rotation of the ankle. The posterior malleolus fragment was also visualized. This was well aligned and had minimal articular surface attached. Incisions were thoroughly irrigated. The subcutaneous tissue was closed with 3-0 Vicryl and the skin was closed with 3-0 nylon. Sterile dressings were applied. A well molded well- padded splint was applied. The patient was transferred to Recovery in stable condition. Needle and sponge counts were correct. Ihsan Bhatt MD Sep 25, 2017 08:12
--- NOTE | 2017-09-25 08:12 | MB ---
cc: MINDY LAM DATE OF CONSULTATION: 09/25/2017 REASON FOR CONSULTATION Right ankle fracture. HISTORY OF PRESENT ILLNESS Zuly is a 82-year-old female. She fell in the shower. She does not clearly recall the fall. She does not know if she had loss of consciousness. She states that she was standing up and the next thing she knew she was on the ground. She had immediate right ankle pain. She was unable to stand or ambulate. She presented to the emergency room where x-rays revealed a trimalleolar fracture. She is currently awake and alert on the orthopedic floor. Her only complaint is her right ankle. Pain is worse with movement. Pain is improved with rest. PAST MEDICAL HISTORY ILLNESSES Hypertension and high cholesterol. SURGERIES Right hip replacement, appendectomy, hysterectomy. MEDICATIONS 1. Prevacid. 2. Celebrex. 3. Norvasc. 4. Allopurinol. ALLERGIES NO KNOWN DRUG ALLERGIES. FAMILY HISTORY Negative. She denies any problems with anesthesia. She denies any familial problems such as diabetes or coronary artery disease. SOCIAL HISTORY The patient denies alcohol, tobacco or drug use. REVIEW OF SYSTEMS The patient denies headache, visual changes, neck pain, chest pain, shortness of breath, abdominal pain, nausea, vomiting or recent weight loss, fever, chills or numbness or tingling of extremities. She complains of right ankle pain. PHYSICAL EXAMINATION GENERAL: The patient is a well-developed, well-nourished 82-year-old female, in no acute distress. She is awake and alert. She is alert and oriented x3. VITAL SIGNS: Temperature 100.0, pulse 88, respirations 18, blood pressure 148/59, O2 sat 94% on room air. HEAD: The patient is normocephalic. Pupils are equal. NECK: Soft, nontender. Trachea is midline. ABDOMEN: Soft, nontender, nondistended. EXTREMITIES: Examination of bilateral upper extremities reveals no pain with shoulder, elbow or wrist motion. She has intact sensation in all fingers. She has good cap refill in all fingers. Skin is intact. Radial pulses palpable bilaterally. Examination of left leg reveals no pain with hip, knee or ankle motion. Skin is intact. Dorsalis pedis pulses palpable. Sensation is intact. Examination of right leg reveals no pain with hip or knee motion. She is tender to palpation around the ankle. There is mild swelling present. She has good cap refill in her toes. Skin is intact. X-RAYS X-rays of right ankle were reviewed. X-rays reveal a mildly displaced right ankle trimalleolar fracture. IMPRESSION 1. Right ankle fractures. 2. Reflux. 3. Hypertension. PLAN Treatment options were discussed with the patient. At this point I would recommend open reduction, internal fixation of right ankle. Risks of surgery include bleeding, infection, injuries to arteries, nerves, blood vessels, nonunion, malunion, painful hardware, wound infection, ankle stiffness, ankle arthritis as well as medical complications including blood clot, stroke, heart attack and . All questions were answered. I will plan on surgery today. A mid-level provider in my office, nurse practitioner or PA, may see this patient on a follow-up basis and continue to implement the objective of this plan including: Starting or adjusting medications, injections of muscle, tendon, bursa or joints, cast application, orthotic or brace application, physical therapy, further radiographic studies including x-ray, MRI, CT, ultrasounds or bone scan, vascular studies, neurologic studies, or other specialist consultations, and proceeding with surgical management as appropriate. MD SHARON Mazariegos/FIDE /7:33 AM /8:02 AM
[2017-09-25] MEDS ORDERED: ONDANSETRON HCL 4 MG/2 ML VIAL IVP PRN (08:15)
[2017-09-25] MEDS ORDERED: Post-op Orders (for Pharmacy) MISC XX ONE (08:29)
[2017-09-25] MEDS ORDERED: DO NOT ADM ANY ANTICOAGULANT DRUGS PRN (08:29)
[2017-09-25] MEDS: PANTOPRAZOLE SOD 40 MG DELAYED RELEASE TAB PO SCH (09:00)
[2017-09-25] MEDS: amLODIPine BESYLATE 5 MG TAB PO SCH (09:00)
[2017-09-25] MEDS ORDERED: CELECOXIB 200 MG CAP PO SCH (09:00)
[2017-09-25] MEDS: SODIUM CHLORIDE 0.9% FLUSH 10 ML FLUSH IV FLUSH SCH (09:00)
--- NOTE | 2017-09-25 09:44 | EKG ---
Date Performed: 09/24/2017 Time Performed: 18:40:59 PTAGE: 82 years EKG: Sinus rhythm NORMAL ECG NO PREVIOUS TRACING DOCTOR: Lamont Tucker Interpretating Date/Time 09/25/2017 09:43:26
[2017-09-25] MEDS: MORPHINE SULFATE 4 MG/ML INJ IV PUSH PRN ×2 (09:49→15:40)
--- NOTE | 2017-09-25 11:25 | RADRPT ---
EXAM DATE/TIME: 09/25/2017 08:00 [facility] COMPARISON: No previous studies available for comparison. INDICATIONS : Open reduction internal fixation right ankle. MEDICAL HISTORY : None. SURGICAL HISTORY : None. ENCOUNTER: Initial ACUITY: 1 day PAIN SCORE: Non-responsive. LOCATION: Right Ankle FINDINGS: Two view examination was performed of the right ankle. The medial malleolus hardware and fibular frac ture fixation hardware are in good position. There no obvious complications.. CONCLUSION: Fracture fixation as above Lamont Cuello MD on September 25, 2017 at 11:23 Board Certified Radiologist. This report was verified electronically.
[2017-09-25] MEDS ORDERED: PROPOFOL 200 MG/20 ML AMP IV ONE (12:00)
[2017-09-25] MEDS ORDERED: MIDAZOLAM HCL 2 MG/2 ML VIAL IV ONE (12:00)
[2017-09-25] MEDS ORDERED: ONDANSETRON HCL 4 MG/2 ML VIAL IV PUSH ONE (12:00)
[2017-09-25] MEDS ORDERED: LIDOCAINE HCL 1% PF 5 ML SYRINGE OTHER ONE (12:00)
[2017-09-25] MEDS ORDERED: ePHEDrine/NS 25 MG/5 ML SYR IV ONE (12:00)
[2017-09-25] MEDS ORDERED: PHENYLEPH/NS 1000 MCG/10 ML SYR IV ONE (12:00)
[2017-09-25] MEDS: ACETAMINOPHEN/HYDROcodone 325 MG/7.5 MG TAB PO PRN ×2 (12:10→17:40)
--- NOTE | 2017-09-25 13:46 | HHI.PR ---
Subjective Remarks Follow-up syncope. Patient states she was dizzy prior to passing out for few seconds then she fell. Denies chest pain, shortness of breath, numbness and focal weakness. States she is just getting old. She is not taking any new medicine. She uses C Pap for sleep apnea. Discussed with RN, orthostatic vital signs ordered Objective Vitals Vital Signs Date Time Temp Pulse Resp B/P (MAP) Pulse Ox O2 Delivery O2 Flow Rate FiO2 09/25/17 11:46 95.9 80 19 127/55 (79) 98 09/25/17 09:40 Nasal Cannula 2.00 09/25/17 09:30 99.5 87 13 146/67 (93) 98 Nasal Cannula 2 09/25/17 09:15 84 13 148/65 (92) 97 Nasal Cannula 2 09/25/17 09:00 86 14 148/67 (94) 97 Nasal Cannula 2 09/25/17 08:45 90 16 150/69 (96) 96 Nasal Cannula 2 09/25/17 08:37 99.2 90 15 147/65 (92) 97 Nasal Cannula 2 09/25/17 04:45 100.0 88 18 148/59 (88) 94 09/25/17 00:45 99.8 65 18 156/68 (97) 98 09/25/17 00:03 64 09/24/17 22:48 09/24/17 22:28 68 18 172/74 (106) 99 Room Air 09/24/17 19:06 99.4 62 18 157/87 (110) 100 Room Air 09/24/17 17:26 75 20 213/88 (129) 100 I/O 09/24/17 09/24/17 09/24/17 09/25/17 09/25/17 09/25/17 07:00 15:00 23:00 07:00 15:00 23:00 Intake Total 0 ml 1050 ml Output Total 25 ml Balance 0 ml 1025 ml Intake Oral 0 ml 0 ml IV Total 0 ml Other 1050 ml Output Estimated Blood Loss 25 ml # Voids 1 0 # Bowel Movements 0 Result Diagram: 09/25/17 0435 09/25/17 0435 Imaging Last Impressions Ankle X-Ray 09/25/17 0000 Signed Impressions: Service Date/Time: Monday, September 25, 2017 08:00 - CONCLUSION: Fracture fixation as above Lamont Cuello MD Tibia/Fibula X-Ray 09/24/17 0000 Signed Impressions: Service Date/Time: Sunday, September 24, 2017 18:02 - CONCLUSION: Trimalleolar ankle fracture. Alfred Abraham MD Thoracic Spine X-Ray 09/24/17 0000 Signed Impressions: Service Date/Time: Sunday, September 24, 2017 17:58 - CONCLUSION: 1. No evidence of compression deformity or spondylolisthesis. 2. Moderately advanced paravertebral ossification related to discogenic changes. Alfred Abraham MD Knee X-Ray 09/24/17 0000 Signed Impressions: Service Date/Time: Sunday, September 24, 2017 18:13 - CONCLUSION: No evidence of recent bony injury. Alfred Abraham MD Hip and Pelvis X-Ray 09/24/17 0000 Signed Impressions: Service Date/Time: Sunday, September 24, 2017 17:52 - CONCLUSION: Intact right total hip arthroplasty. The bony pelvic ring is intact. Alfred Abraham MD Head CT 09/24/17 0000 Signed Impressions: Service Date/Time: Sunday, September 24, 2017 18:19 - CONCLUSION: Age-appropriate atrophy. No acute findings. Alfred Abraham MD Femur X-Ray 09/24/17 0000 Signed Impressions: Service Date/Time: Sunday, September 24, 2017 17:53 - CONCLUSION: No evidence of recent bony injury. Alfred Abraham MD Chest X-Ray 09/24/17 0000 Signed Impressions: Service Date/Time: Sunday, September 24, 2017 17:51 - CONCLUSION: The lungs are clear. Alfred Abraham MD Cervical Spine CT 09/24/17 0000 Signed Impressions: Service Date/Time: Sunday, September 24, 2017 18:19 - CONCLUSION: 1. No evidence of fracture or subluxation. 2. Multilevel degenerative changes. Alfred Abraham MD Carotid Artery Ultrasound 09/24/17 0000 Signed Impressions: Service Date/Time: Sunday, September 24, 2017 21:58 - CONCLUSION: 1. Nondiagnostic study on the right side and cannot confirm the presence of internal carotid artery flow. 2. Abnormal hemodynamic profile on the left side characteristic of 50-70%% stenosis. 3. May consider performing either CTA or MRA to further evaluate for the presence of flow in the right carotid and to characterize the severity of disease on left side. Alfred Abraham MD Objective Remarks GENERAL: Obese female lying in bed SKIN: No rashes, ecchymoses or lesions. Cool and dry. NECK: Trachea midline. No JVD or lymphadenopathy. Supple, nontender, no meningeal signs. CARDIOVASCULAR: Regular rate and rhythm without murmurs, gallops, or rubs. RESPIRATORY: Clear to auscultation. Breath sounds equal bilaterally. No wheezes , rales, or rhonchi. GASTROINTESTINAL: Abdomen soft, non-tender, nondistended. No guarding. MUSCULOSKELETAL: Right lower extremity in a cast no gross deformities or ecchymoses. NEUROLOGICAL: Awake and alert. Cranial nerves II through XII intact. Motor and sensory grossly within normal limits. Normal speech. Procedures ORIF malleolar fx A/P Problem List: (1) Trimalleolar fracture ICD Code: S82.853A - Displaced trimalleolar fracture of unspecified lower leg, initial encounter for closed fracture Status: Acute (2) Near syncope ICD Code: R55 - Syncope and collapse Status: Acute (3) Fall ICD Code: W19.XXXA - Unspecified fall, initial encounter Status: Acute Assessment and Plan 82-year-old female with past medical history significant for hypertension and hyperlipidemia presents after syncopal episode where she sustained a trimalleolar fracture. 1. Trimalleolar fracture of right extremity status post repair. Stable continue postoperative care with pain management with Lortab and IV morphine sulfate, PT, wound care and DVT prophylaxis with SCD. 2. Syncopal episode. Patient reports of dizziness prior to brief syncope. Check orthostatic vital signs continue IV fluids EKG with nonspecific ST-T wave changes. Heart rate 63. Normal sinus rhythm. Reviewed by me. Monitor on telemetry Syncopal workup underway pending echocardiogram and EEG. Carotid ultrasound abnormal we'll obtain carotid MRA without contrast secondary to kidney dysfunction 3. Hypertension/GERD Continue home medications 4. Sleep apnea continue C Pap 5. Acute kidney injury. Nonoliguric. IV hydration as previously mentioned. Avoid nephrotoxins. Repeat BMP in the morning Discharge Planning Discharge per orthopedic surgery Problem Qualifiers (1) Trimalleolar fracture: Qualified Codes: S82.851A - Displaced trimalleolar fracture of right lower leg , initial encounter for closed fracture (2) Fall: Qualified Codes: W19.XXXA - Unspecified fall, initial encounter Dewey Leal MD Sep 25, 2017 13:46
[2017-09-25] MEDS ORDERED: ceFAZolin 2 GM PREMIX 50 ML IV SCH (15:00)
--- NOTE | 2017-09-25 15:00 | PD.CONS ---
History of Present Illness Service Neurology Consult Requested By medical Reason for Consult syncope Primary Care Physician Unknown History of Present Illness 82-year-old female admitted for rt ankle fracture after she fell in shower. had episode of lightheadedness prior to passing out inhouse. neuro consulted for further eval. had similar episode a few years ago. no hx of sz/stroke/tia. feels well at present. 09/24 ct brain nml spends her mejia here. otherwise [facility] [place]. Review of Systems as above and admit hp Past Family Social History Past Medical History Hypertension Hyperlipidemia Past Surgical History Right hip replacement Appendectomy Hysterectomy Reported Medications Reported Meds & Active Scripts Active Reported [Apoallopurinal] 100 [Aerius] 5 DAILY Prevacid (Lansoprazole) 30 Mg Capdr 30 Mg PO DAILY Celebrex (Celecoxib) 200 Mg Cap 200 Mg PO BID [Teveten Plus] 60,012.5 DAILY Norvasc (Amlodipine Besylate) 5 Mg Tab 5 Mg PO DAILY Allergies: Coded Allergies: No Known Allergies (Unverified , 09/24/17) Family History No family history of heart disease or diabetes Social History from [facility] [place]. spends her mejia here Denies tobacco, alcohol and illicit drugs Review of Systems All other ROS: ROS reviewed as documented in chart Past Family Social History Allergies: Coded Allergies: No Known Allergies (Unverified , 09/24/17) Active Ordered Medications Current Medications Medications (Trade) Dose Ordered Sig/Jan Route Start Time Stop Time Status Last Admin Sodium Chloride 1,000 ml @ 70 mls/hr [id number] IV 09/24/17 21:53 09/24/17 22:34 (NS Flush) 2 ml UNSCH PRN IV FLUSH 09/24/17 22:00 (NS Flush) 2 ml BID IV FLUSH 09/25/17 09:00 (Norvasc) 5 mg DAILY PO 09/25/17 09:00 (Protonix) 40 mg DAILY PO 09/25/17 09:00 Cefazolin Sodium/ Dextrose 50 ml @ 100 mls/hr Q8H IV 09/25/17 15:00 09/25/17 15:29 09/25/17 14:10 (Zofran Inj) 4 mg Q4H PRN IVP 09/25/17 08:15 (Morphine Inj) 4 mg Q3H PRN IV PUSH 09/25/17 08:15 09/25/17 09:49 ([place] 7.5-325 Mg) 1 tab Q3H PRN PO 09/25/17 08:15 09/25/17 12:10 Miscellaneous Information ALL NURSING DEPARTME... UNSCH PRN .XX 09/25/17 08:29 09/26/17 08:28 Exam I&O / VS 09/25/17 09/25/17 09/26/17 15:00 23:00 07:00 Intake Total 1350 ml Output Total 25 ml Balance 1325 ml Intake Oral 300 ml IV Total 0 ml Other 1050 ml Output Urine Total 0 ml Estimated Blood Loss 25 ml # Voids 0 Vital Signs Date Time Temp Pulse Resp B/P (MAP) Pulse Ox O2 Delivery O2 Flow Rate FiO2 09/25/17 11:46 95.9 80 19 127/55 (79) 98 09/25/17 09:40 Nasal Cannula 2.00 09/25/17 09:30 99.5 87 13 146/67 (93) 98 Nasal Cannula 2 09/25/17 09:15 84 13 148/65 (92) 97 Nasal Cannula 2 09/25/17 09:00 86 14 148/67 (94) 97 Nasal Cannula 2 09/25/17 08:45 90 16 150/69 (96) 96 Nasal Cannula 2 09/25/17 08:37 99.2 90 15 147/65 (92) 97 Nasal Cannula 2 09/25/17 04:45 100.0 88 18 148/59 (88) 94 09/25/17 00:45 99.8 65 18 156/68 (97) 98 09/25/17 00:03 64 09/24/17 22:48 09/24/17 22:28 68 18 172/74 (106) 99 Room Air 09/24/17 19:06 99.4 62 18 157/87 (110) 100 Room Air 09/24/17 17:26 75 20 213/88 (129) 100 General: Alert and Oriented, No acute distress Eye: EOMI Respiratory: Non-labored respirations Cardiology: Normal rate Neurologic: Alert, Oriented Psychiatric: Cooperative, Appropriate mood & affect Exam Comments sitting up in chair, turkish accent, follows, eomi, face sym, ou 3-2mm, no drift in u, rt le wrapped Review/Management Diagnosis/Plan: (1) Near syncope ICD Codes: R55 - Syncope and collapse Status: Acute Plan: likely 2/2 orthostatics/vasovagal/pain mediated r/o left hemispheric tia/infarct left carotid 50-70% stenosis lesser likely sz recs orthostatics eeg mri/mra imaging- if feasible echo (2) Trimalleolar fracture ICD Codes: S82.853A - Displaced trimalleolar fracture of unspecified lower leg , initial encounter for closed fracture Status: Acute (3) HTN (hypertension) ICD Codes: I10 - Essential (primary) hypertension Status: Chronic Problem Qualifiers (1) Trimalleolar fracture: Qualified Codes: S82.851A - Displaced trimalleolar fracture of right lower leg , initial encounter for closed fracture (2) HTN (hypertension): Qualified Codes: I10 - Essential (primary) hypertension Kwame Reyes MD Sep 25, 2017 15:00
--- NOTE | 2017-09-25 18:02 | RADRPT ---
EXAM DATE/TIME: 09/25/2017 16:34 [facility] COMPARISON: No previous studies available for comparison. INDICATIONS : CVA. MEDICAL HISTORY : Hypertension. SURGICAL HISTORY : Hysterectomy. Appendectomy. ENCOUNTER: Subsequent ACUITY: 2 day PAIN SCORE: 0/10 LOCATION: cranial TECHNIQUE: Multiplanar, multisequence MRI of the brain was performed without contrast. FINDINGS: The study is motion degraded. CEREBRUM: The ventricles are normal for age. No evidence of midline shift, mass lesion, hemorrhage or acute in farction. No extraaxial fluid collections are seen. The pituitary gland and suprasellar cistern are normal in configuration. WHITE MATTER: Periventricular high flair signal abnormality involving both cerebral hemispheres. POSTERIOR FOSSA: The cerebellum and brainstem are intact. The 4th ventricle is midline. The cerebellopontine angle is unremarkable. The cerebellar tonsils are normal in position. DIFFUSION IMAGING: No focal areas of restricted diffusion are seen. No evidence of acute infarction. EXTRACRANIAL: The visualized portions of the orbits and paranasal sinuses are unremarkable. CONCLUSION: 1. No acute intracranial abnormality. 2. Chronic small vessel ischemic change. Alfred Desouza Jr., MD on September 25, 2017 at 17:54 Board Certified Radiologist. This report was verified electronically.
--- NOTE | 2017-09-25 18:08 | RADRPT ---
EXAM DATE/TIME: 09/25/2017 16:34 [facility] COMPARISON: MRI BRAIN W/O CONTRAST, September 25, 2017, 16:34. INDICATIONS : CVA. MEDICAL HISTORY : Hypertension. SURGICAL HISTORY : Hysterectomy. Appendectomy. ENCOUNTER: Subsequent ACUITY: 2 day PAIN SCORE: 0/10 LOCATION: cranial Please note a normal MRA of the brain does not entirely exclude the possibility of a small aneurysm, nor the possibility of distal intracranial vessel disease. TECHNIQUE: 3D time of flight MRA was performed. Source images, multiplanar STS MIP, and 3D volume MIP reconstru ctions were reviewed. FINDINGS: There is significant motion artifact which causes blurring of the imaged vascular structures. This a rtifact may obscure the presence of aneurysms and should be considered nondiagnostic with regard to d etection of aneurysms. This study is still diagnostic for vessel patency. The anterior circulation is normal in appearance without evidence of vessel truncation. Some flow is seen in the anterior com municating artery and in both PCOM. The basilar artery is normal size. CONCLUSION: No evidence of vessel truncation. Alfred Abraham MD on September 25, 2017 at 18:04 Board Certified Radiologist. This report was verified electronically.
--- NOTE | 2017-09-25 18:20 | RADRPT ---
EXAM DATE/TIME: 09/25/2017 16:34 [facility] COMPARISON: No previous studies available for comparison. INDICATIONS : Occlusion MEDICAL HISTORY : Hypertension. SURGICAL HISTORY : Hysterectomy. Appendectomy. ENCOUNTER: Subsequent ACUITY: 2 day PAIN SCORE: 0/10 LOCATION: Carotid Percent stenosis is calculated using the diameter of the stenotic region over the diameter of the nor mal distal internal carotid artery. TECHNIQUE: 3D time of flight MRA of the extracranial circulation was performed using a neurovascular coil. Post processing was performed including rotating subvolume maximum intensity projections of each carotid artery, rotating full-volume maximum intensity projections of both carotid arteries, sagittal and cor onal sliding thin-slab reformations of each carotid artery, and left oblique sliding thin slab reform ation through the aortic arch to include the origin of the arch branch vessels. FINDINGS: Moderate image degradation due to patient motion does cause obscuration of the vascular margins; as s uch, small areas of plaque ulceration may go undetected on the scan. AORTIC ARCH: There is a three vessel origin of the great vessels from the aorta. No evidence of ostial narrowing. RIGHT CAROTID: The common carotid artery is intact. The carotid bulb has a normal configuration without ulceration or narrowing. The internal carotid artery lumen is smooth without stenosis. 50% concentric stenosis at the origin of external carotid artery; otherwise normal appearance.. LEFT CAROTID: The common carotid artery is intact. The carotid bulb has a normal configuration without ulceration or narrowing. The internal carotid artery lumen is smooth without stenosis. 50% concentric stenosis at the origin of the external carotid artery; otherwise normal appearance. VERTEBRALS: The vertebral arteries have a symmetric diameter. No stenotic lesions are seen. CONCLUSION: 1. No evidence of vessel occlusion. 2. Mild ostial stenosis at the origin of both external carotid arteries. Alfred Abraham MD on September 25, 2017 at 18:15 Board Certified Radiologist. This report was verified electronically.
[2017-09-25] MEDS: SODIUM CHLOR 0.9% 1000 ML INJ 1,000 ML IV SCH (23:00)
--- NOTE | 2017-09-25 23:12 | MG ---
cc: EDENILSON MACK MD Lab No: [id number] Date: 09/25/17 Age: 82 Sex: F Race: DATE OF 1935 HISTORY An 82-year-old female with history of dizziness, syncopal episode. DESCRIPTION 5-7 Hz posterior rhythm, 20-50 microvolts with bursts of frontal and generalized delta activity 1-3 Hz. Frontal myogenic artifact occurring. Reduced driving with photic stimulation. Single lead EKG showing irregularly irregular type pattern. INTERPRETATION Mild encephalopathy. Cardiac arrhythmia. Clinical correlation. Edenilson Mack MD MG/EO /9:42 PM /11:12 PM
[2017-09-26] VITALS (9 sets, daily range): BP systolic 125–154; BP diastolic 58–69; PULSE 73–84; RESP 17–18; TEMP 97.3–99.7; O2SAT 93–99
[2017-09-26] MEDS: ACETAMINOPHEN/HYDROcodone 325 MG/7.5 MG TAB PO PRN (02:21)
[2017-09-26] MEDS: SODIUM CHLORIDE 0.9% FLUSH 10 ML FLUSH IV FLUSH SCH ×3 (02:26→19:26)
[2017-09-26] MEDS: MORPHINE SULFATE 4 MG/ML INJ IV PUSH PRN ×3 (05:54→12:38)
[2017-09-26 06:56] LABS: BICARBONATE 20.4 MEQ/L (21.0-32.0); CALCIUM-PROTEIN CORRECTED 8.2 MG/DL (8.5-10.1); MAGNESIUM 1.5 MG/DL (1.5-2.5); POTASSIUM 3.6 MEQ/L (3.5-5.1); TOTAL BILIRUBIN ADULT 0.4 MG/DL (0.2-1.0)
[2017-09-26] MEDS: PANTOPRAZOLE SOD 40 MG DELAYED RELEASE TAB PO SCH (08:35)
[2017-09-26] MEDS: SODIUM CHLOR 0.9% 1000 ML INJ 1,000 ML IV SCH ×2 (08:36→19:28)
--- NOTE | 2017-09-26 08:37 | HHI.PR ---
Review/Management Diagnosis/Plan: (1) Near syncope ICD Codes: R55 - Syncope and collapse Status: Acute Plan: likely 2/2 orthostatics/vasovagal/pain mediated mri/mra brain, carotids nml eeg- no sz neuro stable recs f/u echo hydration rehab sign off d/w medical (2) Trimalleolar fracture ICD Codes: S82.853A - Displaced trimalleolar fracture of unspecified lower leg , initial encounter for closed fracture Status: Acute (3) HTN (hypertension) ICD Codes: I10 - Essential (primary) hypertension Status: Chronic Subjective Subjective Comments No acute events reported No headache No chest pain No dyspnea Active Medications Current Medications Medications (Trade) Dose Ordered Sig/Jan Route Start Time Stop Time Status Last Admin Sodium Chloride 1,000 ml @ 70 mls/hr [id number] IV 09/24/17 21:53 09/25/17 23:00 (NS Flush) 2 ml UNSCH PRN IV FLUSH 09/24/17 22:00 (NS Flush) 2 ml BID IV FLUSH 09/25/17 09:00 09/26/17 02:26 (Norvasc) 5 mg DAILY PO 09/25/17 09:00 (Protonix) 40 mg DAILY PO 09/25/17 09:00 (Zofran Inj) 4 mg Q4H PRN IVP 09/25/17 08:15 (Morphine Inj) 4 mg Q3H PRN IV PUSH 09/25/17 08:15 09/26/17 05:54 ([place] 7.5-325 Mg) 1 tab Q3H PRN PO 09/25/17 08:15 09/26/17 02:21 Allergies Allergies Coded Allergies No Known Allergies (Bzennakpql30/21/17) Review of Systems All other ROS: ROS reviewed as documented in chart Exam I&O / VS Vital Signs Date Time Temp Pulse Resp B/P (MAP) Pulse Ox O2 Delivery O2 Flow Rate FiO2 09/26/17 03:31 99.7 84 18 138/61 (86) 93 09/25/17 23:44 99.2 86 17 128/58 (81) 93 09/25/17 19:30 97.8 82 18 118/59 (78) 94 09/25/17 18:50 Nasal Cannula 2.00 09/25/17 15:50 98.0 82 19 132/51 (78) 99 09/25/17 11:46 95.9 80 19 127/55 (79) 98 09/25/17 09:40 Nasal Cannula 2.00 09/25/17 09:30 99.5 87 13 146/67 (93) 98 Nasal Cannula 2 09/25/17 09:15 84 13 148/65 (92) 97 Nasal Cannula 2 09/25/17 09:00 86 14 148/67 (94) 97 Nasal Cannula 2 09/25/17 08:45 90 16 150/69 (96) 96 Nasal Cannula 2 09/25/17 08:37 99.2 90 15 147/65 (92) 97 Nasal Cannula 2 General: Alert and Oriented, No acute distress Eye: EOMI Respiratory: Non-labored respirations Cardiology: Normal rate Neurologic: Alert, Oriented Psychiatric: Cooperative, Appropriate mood & affect Exam Comments getting orthostatics checked, romansh accent, follows, eomi, face sym, no drift in u, rt le wrapped Objective Micro and Labs Laboratory Tests Test 09/25/17 10:35 09/26/17 05:30 Total Creatine Kinase 272 Creatine Kinase MB 5.0 Creatine Kinase MB % 1.8 Troponin I 0.06 Blood Urea Nitrogen 17 Creatinine 1.43 Random Glucose 86 Total Protein 5.5 Albumin 2.7 Calcium Level 7.3 Magnesium Level 1.5 Alkaline Phosphatase 36 Aspartate Amino Transf (AST/SGOT) 17 Alanine Aminotransferase (ALT/SGPT) 13 Total Bilirubin 0.4 Sodium Level 141 Potassium Level 3.6 Chloride Level 112 Carbon Dioxide Level 20.4 Anion Gap 9 Estimat Glomerular Filtration Rate 35 Protein Corrected Calcium 8.2 Problem Qualifiers (1) Trimalleolar fracture: Qualified Codes: S82.851A - Displaced trimalleolar fracture of right lower leg , initial encounter for closed fracture (2) HTN (hypertension): Qualified Codes: I10 - Essential (primary) hypertension Kwame Reyes MD Sep 26, 2017 08:37
--- NOTE | 2017-09-26 08:50 | HHI.PR ---
Subjective Remarks Follow-up syncope. Patient was orthostatic. Also complained that pain is not under control with Lortab but relieved with IV morphine. Did not sleep well because of pain. Discussed with RN and neurology Objective Vitals Vital Signs Date Time Temp Pulse Resp B/P (MAP) Pulse Ox O2 Delivery O2 Flow Rate FiO2 09/26/17 03:31 99.7 84 18 138/61 (86) 93 09/25/17 23:44 99.2 86 17 128/58 (81) 93 09/25/17 19:30 97.8 82 18 118/59 (78) 94 09/25/17 18:50 Nasal Cannula 2.00 09/25/17 15:50 98.0 82 19 132/51 (78) 99 09/25/17 11:46 95.9 80 19 127/55 (79) 98 09/25/17 09:40 Nasal Cannula 2.00 09/25/17 09:30 99.5 87 13 146/67 (93) 98 Nasal Cannula 2 09/25/17 09:15 84 13 148/65 (92) 97 Nasal Cannula 2 09/25/17 09:00 86 14 148/67 (94) 97 Nasal Cannula 2 I/O 09/25/17 09/25/17 09/25/17 09/26/17 09/26/17 09/26/17 07:00 15:00 23:00 07:00 15:00 23:00 Intake Total 0 ml 1350 ml 480 ml 1412 ml Output Total 25 ml Balance 0 ml 1325 ml 480 ml 1412 ml Intake Oral 0 ml 300 ml 480 ml 360 ml IV Total 0 ml 1052 ml Other 1050 ml Output Urine Total 0 ml Estimated Blood Loss 25 ml # Voids 1 0 2 3 # Bowel Movements 0 0 0 Result Diagram: 09/25/17 0435 09/26/17 0530 Imaging Last Impressions Neck Magnetic Resonance Angiography 09/25/17 0000 Signed Impressions: Service Date/Time: Monday, September 25, 2017 16:34 - CONCLUSION: 1. No evidence of vessel occlusion. 2. Mild ostial stenosis at the origin of both external carotid arteries. Alfred Abraham MD Head Magnetic Resonance Angiography 09/25/17 0000 Signed Impressions: Service Date/Time: Monday, September 25, 2017 16:34 - CONCLUSION: No evidence of vessel truncation. Alfred Abraham MD Brain MRI 09/25/17 0000 Signed Impressions: Service Date/Time: Monday, September 25, 2017 16:34 - CONCLUSION: 1. No acute intracranial abnormality. 2. Chronic small vessel ischemic change. Alfred Desouza Jr., MD Ankle X-Ray 09/25/17 0000 Signed Impressions: Service Date/Time: Monday, September 25, 2017 08:00 - CONCLUSION: Fracture fixation as above Lamont Cuello MD Tibia/Fibula X-Ray 09/24/17 0000 Signed Impressions: Service Date/Time: Sunday, September 24, 2017 18:02 - CONCLUSION: Trimalleolar ankle fracture. Alfred Abraham MD Thoracic Spine X-Ray 09/24/17 0000 Signed Impressions: Service Date/Time: Sunday, September 24, 2017 17:58 - CONCLUSION: 1. No evidence of compression deformity or spondylolisthesis. 2. Moderately advanced paravertebral ossification related to discogenic changes. Alfred Abraham MD Knee X-Ray 09/24/17 0000 Signed Impressions: Service Date/Time: Sunday, September 24, 2017 18:13 - CONCLUSION: No evidence of recent bony injury. Alfred Abraham MD Hip and Pelvis X-Ray 09/24/17 0000 Signed Impressions: Service Date/Time: Sunday, September 24, 2017 17:52 - CONCLUSION: Intact right total hip arthroplasty. The bony pelvic ring is intact. Alfred Abraham MD Head CT 09/24/17 0000 Signed Impressions: Service Date/Time: Sunday, September 24, 2017 18:19 - CONCLUSION: Age-appropriate atrophy. No acute findings. Alfred Abraham MD Femur X-Ray 09/24/17 0000 Signed Impressions: Service Date/Time: Sunday, September 24, 2017 17:53 - CONCLUSION: No evidence of recent bony injury. Alfred Abraham MD Chest X-Ray 09/24/17 0000 Signed Impressions: Service Date/Time: Sunday, September 24, 2017 17:51 - CONCLUSION: The lungs are clear. Alfred Abraham MD Cervical Spine CT 09/24/17 0000 Signed Impressions: Service Date/Time: Sunday, September 24, 2017 18:19 - CONCLUSION: 1. No evidence of fracture or subluxation. 2. Multilevel degenerative changes. Alfred Abraham MD Carotid Artery Ultrasound 09/24/17 0000 Signed Impressions: Service Date/Time: Sunday, September 24, 2017 21:58 - CONCLUSION: 1. Nondiagnostic study on the right side and cannot confirm the presence of internal carotid artery flow. 2. Abnormal hemodynamic profile on the left side characteristic of 50-70%% stenosis. 3. May consider performing either CTA or MRA to further evaluate for the presence of flow in the right carotid and to characterize the severity of disease on left side. Alfred Abraham MD Objective Remarks GENERAL: Obese female lying in bed SKIN: No rashes, ecchymoses or lesions. Cool and dry. NECK: Trachea midline. No JVD or lymphadenopathy. Supple, nontender, no meningeal signs. CARDIOVASCULAR: Regular rate and rhythm without murmurs, gallops, or rubs. RESPIRATORY: Clear to auscultation. Breath sounds equal bilaterally. No wheezes , rales, or rhonchi. GASTROINTESTINAL: Abdomen soft, non-tender, nondistended. No guarding. MUSCULOSKELETAL: Right lower extremity in a cast no gross deformities or ecchymoses. NEUROLOGICAL: Awake and alert. Cranial nerves II through XII intact. Motor and sensory grossly within normal limits. Normal speech. No significant change in PE from previous Procedures ORIF malleolar fx A/P Problem List: (1) Trimalleolar fracture ICD Code: S82.853A - Displaced trimalleolar fracture of unspecified lower leg, initial encounter for closed fracture Status: Acute (2) Near syncope ICD Code: R55 - Syncope and collapse Status: Acute (3) Fall ICD Code: W19.XXXA - Unspecified fall, initial encounter Status: Acute Assessment and Plan 82-year-old female with past medical history significant for hypertension and hyperlipidemia presents after syncopal episode where she sustained a trimalleolar fracture. 1. Trimalleolar fracture of right extremity status post repair. Stable continue postoperative care with pain management with Lortab and IV morphine sulfate, PT, wound care and DVT prophylaxis with SCD. Will increase Lortab to 10 mg for better pain coverage 2. Syncopal episode. Patient reports of dizziness prior to brief syncope. She is orthostatic will hold Norvasc and continue IV fluids EKG with nonspecific ST-T wave changes. Heart rate 63. Normal sinus rhythm. Reviewed by me. Monitor on telemetry Syncopal workup negative pending echocardiogram. Unremarkable brain MRI, head MRA and carotid MRA as well as EEG. 3. Hypertension/GERD Continue home medications 4. Sleep apnea continue C Pap 5. Acute kidney injury. Nonoliguric. Improving. IV hydration as previously mentioned. Avoid nephrotoxins. Repeat BMP in the morning Discharge Planning Discharge to rehabilitation if echocardiogram unremarkable Problem Qualifiers (1) Trimalleolar fracture: Qualified Codes: S82.851A - Displaced trimalleolar fracture of right lower leg , initial encounter for closed fracture (2) Fall: Qualified Codes: W19.XXXA - Unspecified fall, initial encounter Dewey Leal MD Sep 26, 2017 08:50
[2017-09-26] MEDS ORDERED: ATOR20TA15 PO (08:57)
--- NOTE | 2017-09-26 08:59 | HHI.DCPOC ---
Discharge Care Plan Diagnosis: (1) Near syncope (2) Trimalleolar fracture Your Health Problems Are: Difficulty with ADL Exercise Tolerance Goals to Promote Your Health * To prevent worsening of your condition and complications * To maintain your health at the optimal level Directions to Meet Your Goals Take your medications as prescribed Follow your dietary instruction Follow activity as directed Keep your appointments as scheduled Take your immunizations and boosters as scheduled If your symptoms worsen call your PCP, if no PCP go to Urgent Care Center or Emergency Room Smoking is Dangerous to Your Health. Avoid second hand smoke Call the 24-hour hour crisis hotline for domestic abuse at Dewey Leal MD Sep 26, 2017 08:59
--- NOTE | 2017-09-26 09:50 | PD.ORT.PN ---
Subjective Subjective Remarks no issues. no CP/SOB Objective Vitals Vital Signs Date Time Temp Pulse Resp B/P (MAP) Pulse Ox O2 Delivery O2 Flow Rate FiO2 09/26/17 03:31 99.7 84 18 138/61 (86) 93 09/25/17 23:44 99.2 86 17 128/58 (81) 93 09/25/17 19:30 97.8 82 18 118/59 (78) 94 09/25/17 18:50 Nasal Cannula 2.00 09/25/17 15:50 98.0 82 19 132/51 (78) 99 09/25/17 11:46 95.9 80 19 127/55 (79) 98 I/O 09/25/17 09/25/17 09/25/17 09/26/17 09/26/17 09/26/17 07:00 15:00 23:00 07:00 15:00 23:00 Intake Total 0 ml 1350 ml 480 ml 1412 ml Output Total 25 ml Balance 0 ml 1325 ml 480 ml 1412 ml Intake Oral 0 ml 300 ml 480 ml 360 ml IV Total 0 ml 1052 ml Other 1050 ml Output Urine Total 0 ml Estimated Blood Loss 25 ml # Voids 1 0 2 3 # Bowel Movements 0 0 0 Result Diagram: 09/25/17 0435 09/26/17 0530 Objective Remarks RLE: Ankle in short leg splint. dressing CDI. NVI Assessment & Plan Assessment and Plan POD 1- Open reduction internal fixation right medial and lateral malleolus fractures abx lovenox no dressing changes NWB dc planning Kenton Barnett Jr., MD Sep 26, 2017 09:50
[2017-09-26] MEDS: ACETAMINOPHEN/HYDROcodone 325 MG/10 MG TAB PO PRN ×2 (12:27→17:44)
--- NOTE | 2017-09-26 14:48 | ECHRPT ---
Indication: Syncope and collapse CONCLUSIONS The left ventricular systolic function is normal with an estimated ejection fraction in the range of 55-60%. Wall thickness is measured at the upper limits of normal. Normal left ventricular size. BP: 146 / 67 HR: 87 Rhythm: Sinus MEASUREMENTS (Male / Female) Normal Values Technical Quality:Technically difficult study 2D ECHO LV Diastolic Diameter PLAX 4.8 cm 4.2 - 5.9 / 3.9 - 5.3 cm LV Systolic Diameter PLAX 3.7 cm IVS Diastolic Thickness 1.1 cm 0.6 - 1.0 / 0.6 - 0.9 cm LVPW Diastolic Thickness 1.2 cm 0.6 - 1.0 / 0.6 - 0.9 cm LV Relative Wall Thickness 0.5 LVOT Diameter 2.1 cm M-MODE Aortic Root Diameter MM 2.5 cm LA Systolic Diameter MM 3.5 cm LA Ao Ratio MM 1.4 AV Cusp Separation MM 1.5 cm DOPPLER AV Peak Velocity 164.0 cm/s AV Peak Gradient 10.8 mmHg LVOT Peak Velocity 95.8 cm/s LVOT Peak Gradient 3.7 mmHg AV Area Cont Eq pk 2.0 cm Mitral E Point Velocity 118.0 cm/s Mitral A Point Velocity 116.0 cm/s Mitral E to A Ratio 1.0 LV E' Lateral Velocity 7.6 cm/s Mitral E to LV E' Lateral Ratio 15.5 LV E' Septal Velocity 11.2 cm/s Mitral E to LV E' Septal Ratio 10.5 PV Peak Velocity 119.0 cm/s PV Peak Gradient 5.7 mmHg FINDINGS LEFT VENTRICLE The left ventricular systolic function is normal with an estimated ejection fraction in the range of 55-60%. Wall thickness is measured at the upper limits of normal. Normal left ventricular size. RIGHT VENTRICLE Normal right ventricular size and systolic function. LEFT ATRIUM The left atrial size is normal. RIGHT ATRIUM The right atrial size is normal. ATRIAL SEPTUM Normal atrial septal thickness without atrial level shunting by limited color doppler interrogation. AORTA The aortic root and proximal ascending aorta are normal in size on limited imaging. MITRAL VALVE Structurally normal mitral valve. No mitral valve stenosis or regurgitation. AORTIC VALVE Trileaflet aortic valve. No aortic valve stenosis or regurgitation. TRICUSPID VALVE Structurally normal tricuspid valve. No tricuspid valve stenosis or regurgitation. PULMONARY VALVE The pulmonary valve is not well visualized. VESSELS The inferior vena cava is normal in size. PERICARDIUM No pericardial effusion. Parish Brown-Mo MD (Electronically Signed) Final Date:26 September 2017 14:47
[2017-09-26] MEDS: ATORVASTATIN 20 MG TAB PO SCH (19:26)
[2017-09-27] VITALS (7 sets, daily range): BP systolic 97–155; BP diastolic 37–63; PULSE 73–92; RESP 18–20; TEMP 97.5–99; O2SAT 94–99
[2017-09-27] MEDS: ACETAMINOPHEN/HYDROcodone 325 MG/10 MG TAB PO PRN ×4 (03:14→19:36)
[2017-09-27] MEDS: MORPHINE SULFATE 4 MG/ML INJ IV PUSH PRN (05:53)
[2017-09-27 06:31] LABS: BICARBONATE 24.2 MEQ/L (21.0-32.0); MAGNESIUM 1.7 MG/DL (1.5-2.5); POTASSIUM 3.8 MEQ/L (3.5-5.1)
[2017-09-27] MEDS ORDERED: BISACODYL 10 MG SUPP RECTAL PRN (09:15)
--- NOTE | 2017-09-27 09:49 | HHI.PR ---
Subjective Remarks Follow-up orthostasis. She is doing better denies any symptoms. No dizziness, chest pain and shortness of breath. Improving pain able to sleep better. Discussed with case management, discharge pending because of insurance issues Objective Vitals Vital Signs Date Time Temp Pulse Resp B/P (MAP) Pulse Ox O2 Delivery O2 Flow Rate FiO2 09/27/17 08:00 99.0 86 18 108/50 (69) 99 09/27/17 03:58 98.8 80 18 155/63 (93) 94 09/26/17 23:29 98.7 79 18 125/58 (80) 93 09/26/17 21:26 73 09/26/17 19:03 97.3 78 17 147/66 (93) 95 09/26/17 17:34 99 Nasal Cannula 3.00 09/26/17 16:00 99.0 78 18 154/69 (97) 99 09/26/17 12:00 99.4 81 18 151/63 (92) 96 I/O 09/26/17 09/26/17 09/26/17 09/27/17 09/27/17 09/27/17 07:00 15:00 23:00 07:00 15:00 23:00 Intake Total 1412 ml 480 ml 1204 ml 480 ml Balance 1412 ml 480 ml 1204 ml 480 ml Intake Oral 360 ml 480 ml 480 ml 480 ml IV Total 1052 ml 724 ml # Voids 3 1 2 1 # Bowel Movements 0 0 0 0 Result Diagram: 09/25/17 0435 09/27/17 0531 Imaging Last Impressions Neck Magnetic Resonance Angiography 09/25/17 0000 Signed Impressions: Service Date/Time: Monday, September 25, 2017 16:34 - CONCLUSION: 1. No evidence of vessel occlusion. 2. Mild ostial stenosis at the origin of both external carotid arteries. Alfred Abraham MD Head Magnetic Resonance Angiography 09/25/17 0000 Signed Impressions: Service Date/Time: Monday, September 25, 2017 16:34 - CONCLUSION: No evidence of vessel truncation. Alfred Abraham MD Brain MRI 09/25/17 0000 Signed Impressions: Service Date/Time: Monday, September 25, 2017 16:34 - CONCLUSION: 1. No acute intracranial abnormality. 2. Chronic small vessel ischemic change. Alfred Desouza Jr., MD Ankle X-Ray 09/25/17 0000 Signed Impressions: Service Date/Time: Monday, September 25, 2017 08:00 - CONCLUSION: Fracture fixation as above Lamont Cuello MD Tibia/Fibula X-Ray 09/24/17 0000 Signed Impressions: Service Date/Time: Sunday, September 24, 2017 18:02 - CONCLUSION: Trimalleolar ankle fracture. Alfred Abraham MD Thoracic Spine X-Ray 09/24/17 0000 Signed Impressions: Service Date/Time: Sunday, September 24, 2017 17:58 - CONCLUSION: 1. No evidence of compression deformity or spondylolisthesis. 2. Moderately advanced paravertebral ossification related to discogenic changes. Alfred Abraham MD Knee X-Ray 09/24/17 0000 Signed Impressions: Service Date/Time: Sunday, September 24, 2017 18:13 - CONCLUSION: No evidence of recent bony injury. Alfred Abraham MD Hip and Pelvis X-Ray 09/24/17 0000 Signed Impressions: Service Date/Time: Sunday, September 24, 2017 17:52 - CONCLUSION: Intact right total hip arthroplasty. The bony pelvic ring is intact. Alfred Abraham MD Head CT 09/24/17 0000 Signed Impressions: Service Date/Time: Sunday, September 24, 2017 18:19 - CONCLUSION: Age-appropriate atrophy. No acute findings. Alfred Abraham MD Femur X-Ray 09/24/17 0000 Signed Impressions: Service Date/Time: Sunday, September 24, 2017 17:53 - CONCLUSION: No evidence of recent bony injury. Alfred Abraham MD Chest X-Ray 09/24/17 0000 Signed Impressions: Service Date/Time: Sunday, September 24, 2017 17:51 - CONCLUSION: The lungs are clear. Alfred Abraham MD Cervical Spine CT 09/24/17 0000 Signed Impressions: Service Date/Time: Sunday, September 24, 2017 18:19 - CONCLUSION: 1. No evidence of fracture or subluxation. 2. Multilevel degenerative changes. Alfred Abraham MD Carotid Artery Ultrasound 09/24/17 0000 Signed Impressions: Service Date/Time: [place], September 24, 2017 21:58 - CONCLUSION: 1. Nondiagnostic study on the right side and cannot confirm the presence of internal carotid artery flow. 2. Abnormal hemodynamic profile on the left side characteristic of 50-70%% stenosis. 3. May consider performing either CTA or MRA to further evaluate for the presence of flow in the right carotid and to characterize the severity of disease on left side. Alfred Abraham MD Objective Remarks GENERAL: Obese female lying in bed SKIN: No rashes, ecchymoses or lesions. Cool and dry. NECK: Trachea midline. No JVD or lymphadenopathy. Supple, nontender, no meningeal signs. CARDIOVASCULAR: Regular rate and rhythm without murmurs, gallops, or rubs. RESPIRATORY: Clear to auscultation. Breath sounds equal bilaterally. No wheezes , rales, or rhonchi. GASTROINTESTINAL: Abdomen soft, non-tender, nondistended. No guarding. MUSCULOSKELETAL: Right lower extremity in a cast no gross deformities or ecchymoses. NEUROLOGICAL: Awake and alert. Cranial nerves II through XII intact. Motor and sensory grossly within normal limits. Normal speech. Procedures ORIF malleolar fx A/P Problem List: (1) Trimalleolar fracture ICD Code: S82.853A - Displaced trimalleolar fracture of unspecified lower leg, initial encounter for closed fracture Status: Acute (2) Near syncope ICD Code: R55 - Syncope and collapse Status: Acute (3) Fall ICD Code: W19.XXXA - Unspecified fall, initial encounter Status: Acute Assessment and Plan 82-year-old female with past medical history significant for hypertension and hyperlipidemia presents after syncopal episode where she sustained a trimalleolar fracture. 1. Trimalleolar fracture of right extremity status post repair. Stable continue postoperative care with pain management with Lortab and IV morphine sulfate, PT, wound care and DVT prophylaxis with SCD. Pain is better controlled 2. Syncopal episode. Patient reports of dizziness prior to brief syncope. She is orthostatic secondary to dehydration will hold Norvasc and continue IV fluids EKG with nonspecific ST-T wave changes. Heart rate 63. Normal sinus rhythm. Reviewed by me. Monitor on telemetry Syncopal workup negative. Unremarkable echocardiogram, brain MRI, head MRA and carotid MRA as well as EEG. 3. Hypertension/GERD Continue to hold 4. Sleep apnea continue C Pap 5. Acute kidney injury likely secondary to dehydration. Nonoliguric. Improving. IV hydration as previously mentioned. Avoid nephrotoxins. Repeat BMP in the morning 6. Constipation. Start Mckenzie-Colace and monitor Discharge Planning Discharge to rehabilitation when arranged Problem Qualifiers (1) Trimalleolar fracture: Qualified Codes: S82.851A - Displaced trimalleolar fracture of right lower leg , initial encounter for closed fracture (2) Fall: Qualified Codes: W19.XXXA - Unspecified fall, initial encounter Dewey Leal MD Sep 27, 2017 09:48
[2017-09-27] MEDS: ENOXAPARIN SODIUM 40 MG/0.4 ML SYRINGE SQ SCH (09:53)
[2017-09-27] MEDS: PANTOPRAZOLE SOD 40 MG DELAYED RELEASE TAB PO SCH (09:54)
[2017-09-27] MEDS: DOCUSATE SODIUM 50 MG/SENNA 8.6 MG TAB PO SCH ×2 (09:59→19:36)
[2017-09-27] MEDS: SODIUM CHLORIDE 0.9% FLUSH 10 ML FLUSH IV FLUSH SCH ×2 (10:00→19:38)
--- NOTE | 2017-09-27 14:59 | PD.ORT.PN ---
Subjective Subjective Remarks no issues. no CP/SOB Objective Vitals Vital Signs Date Time Temp Pulse Resp B/P (MAP) Pulse Ox O2 Delivery O2 Flow Rate FiO2 09/27/17 12:00 98.9 85 18 134/55 (81) 98 09/27/17 08:00 99.0 86 18 108/50 (69) 99 09/27/17 03:58 98.8 80 18 155/63 (93) 94 09/26/17 23:29 98.7 79 18 125/58 (80) 93 09/26/17 21:26 73 09/26/17 19:03 97.3 78 17 147/66 (93) 95 09/26/17 17:34 99 Nasal Cannula 3.00 09/26/17 16:00 99.0 78 18 154/69 (97) 99 I/O 09/26/17 09/26/17 09/26/17 09/27/17 09/27/17 09/27/17 07:00 15:00 23:00 07:00 15:00 23:00 Intake Total 1412 ml 480 ml 1204 ml 480 ml Balance 1412 ml 480 ml 1204 ml 480 ml Intake Oral 360 ml 480 ml 480 ml 480 ml IV Total 1052 ml 724 ml # Voids 3 1 2 1 # Bowel Movements 0 0 0 0 Result Diagram: 09/25/17 0435 09/27/17 0531 Objective Remarks aaox3. nad RLE: Ankle in short leg splint. dressing CDI. NVI Assessment & Plan Assessment and Plan POD 2- Open reduction internal fixation right medial and lateral malleolus fractures doing well. no issues. lovenox no dressing changes NWKatheryn jay planning- pending transport to [place] Kenton Barnett Jr., MD Sep 27, 2017 14:59
[2017-09-27] MEDS: SODIUM CHLOR 0.9% 1000 ML INJ 1,000 ML IV SCH (19:11)
[2017-09-27] MEDS: ATORVASTATIN 20 MG TAB PO SCH (19:36)
[2017-09-27] MEDS: SENNOSIDES 8.6 MG TAB PO PRN (19:36)
[2017-09-28] VITALS (9 sets, daily range): BP systolic 121–161; BP diastolic 50–67; PULSE 76–85; RESP 18–20; TEMP 98.2–99.2; O2SAT 98–100
[2017-09-28] MEDS: SODIUM CHLOR 0.9% 1000 ML INJ 1,000 ML IV SCH ×2 (04:40→20:28)
--- NOTE | 2017-09-28 06:45 | PD.ORT.PN ---
Subjective Subjective Remarks Patient resting comfortably. Pain relatively well controlled. Denies shortness of breath or chest pain. Denies nausea vomiting. Objective Vitals Vital Signs Date Time Temp Pulse Resp B/P (MAP) Pulse Ox O2 Delivery O2 Flow Rate FiO2 09/28/17 00:21 98.2 85 20 139/53 (81) 99 09/27/17 23:35 92 09/27/17 23:15 99 Nasal Cannula 3.00 09/27/17 20:19 97.5 73 20 97/37 (57) 99 09/27/17 16:00 98.2 81 18 126/56 (79) 97 09/27/17 12:00 98.9 85 18 134/55 (81) 98 09/27/17 08:00 99.0 86 18 108/50 (69) 99 I/O 09/27/17 09/27/17 09/27/17 09/28/17 09/28/17 09/28/17 07:00 15:00 23:00 07:00 15:00 23:00 Intake Total 480 ml 600 ml Balance 480 ml 600 ml Intake Oral 480 ml 600 ml # Voids 1 2 1 3 # Bowel Movements 0 0 0 Result Diagram: 09/25/17 0435 09/27/17 0531 Objective Remarks aaox3. nad RLE: Ankle in short leg splint. dressing CDI. NVI Assessment & Plan Assessment and Plan POD 3- Open reduction internal fixation right medial and lateral malleolus fractures doing well. no issues. lovenox no dressing changes NWKatheryn dc planning- pending transport to [place] Allison Hines MD Sep 28, 2017 06:45
[2017-09-28 07:17] LABS: BICARBONATE 24.6 MEQ/L (21.0-32.0); MAGNESIUM 1.9 MG/DL (1.5-2.5)
[2017-09-28] MEDS: DOCUSATE SODIUM 50 MG/SENNA 8.6 MG TAB PO SCH ×2 (08:43→20:27)
[2017-09-28] MEDS: ACETAMINOPHEN/HYDROcodone 325 MG/10 MG TAB PO PRN ×2 (08:43→22:50)
[2017-09-28] MEDS: PANTOPRAZOLE SOD 40 MG DELAYED RELEASE TAB PO SCH (08:43)
[2017-09-28] MEDS: LACTULOSE SYRUP 20 GM/30 ML CUP PO PRN (08:54)
[2017-09-28] MEDS ORDERED: ENOX40P SQ (08:55)
--- NOTE | 2017-09-28 08:58 | HHI.PR ---
Subjective Remarks Follow-up acute kidney injury and dehydration. She has no new complaints. Still no BM but passing flatus. Denies nausea and abdominal pain. She reports her insurance will apply her back to [facility] accompanied by a doctor and a nurse. Patient was told she is stable to fly. Discussed with RN Objective Vitals Vital Signs Date Time Temp Pulse Resp B/P (MAP) Pulse Ox O2 Delivery O2 Flow Rate FiO2 09/28/17 00:21 98.2 85 20 139/53 (81) 99 09/27/17 23:35 92 09/27/17 23:15 99 Nasal Cannula 3.00 09/27/17 20:19 97.5 73 20 97/37 (57) 99 09/27/17 16:00 98.2 81 18 126/56 (79) 97 09/27/17 12:00 98.9 85 18 134/55 (81) 98 I/O 09/27/17 09/27/17 09/27/17 09/28/17 09/28/17 09/28/17 07:00 15:00 23:00 07:00 15:00 23:00 Intake Total 480 ml 600 ml Balance 480 ml 600 ml Intake Oral 480 ml 600 ml # Voids 1 2 1 3 # Bowel Movements 0 0 0 Result Diagram: 09/25/17 0435 09/28/17 0536 Imaging Last Impressions Neck Magnetic Resonance Angiography 09/25/17 0000 Signed Impressions: Service Date/Time: Monday, September 25, 2017 16:34 - CONCLUSION: 1. No evidence of vessel occlusion. 2. Mild ostial stenosis at the origin of both external carotid arteries. Alfred Abraham MD Head Magnetic Resonance Angiography 09/25/17 0000 Signed Impressions: Service Date/Time: Monday, September 25, 2017 16:34 - CONCLUSION: No evidence of vessel truncation. Alfred Abraham MD Brain MRI 09/25/17 0000 Signed Impressions: Service Date/Time: Monday, September 25, 2017 16:34 - CONCLUSION: 1. No acute intracranial abnormality. 2. Chronic small vessel ischemic change. Alfred Desouza Jr., MD Ankle X-Ray 09/25/17 0000 Signed Impressions: Service Date/Time: Monday, September 25, 2017 08:00 - CONCLUSION: Fracture fixation as above Lamont Cuello MD Tibia/Fibula X-Ray 09/24/17 0000 Signed Impressions: Service Date/Time: Sunday, September 24, 2017 18:02 - CONCLUSION: Trimalleolar ankle fracture. Alfred Abraham MD Thoracic Spine X-Ray 09/24/17 0000 Signed Impressions: Service Date/Time: Sunday, September 24, 2017 17:58 - CONCLUSION: 1. No evidence of compression deformity or spondylolisthesis. 2. Moderately advanced paravertebral ossification related to discogenic changes. Alfred Abraham MD Knee X-Ray 09/24/17 0000 Signed Impressions: Service Date/Time: Sunday, September 24, 2017 18:13 - CONCLUSION: No evidence of recent bony injury. Alfred Abraham MD Hip and Pelvis X-Ray 09/24/17 0000 Signed Impressions: Service Date/Time: Sunday, September 24, 2017 17:52 - CONCLUSION: Intact right total hip arthroplasty. The bony pelvic ring is intact. Alfred Abraham MD Head CT 09/24/17 0000 Signed Impressions: Service Date/Time: Sunday, September 24, 2017 18:19 - CONCLUSION: Age-appropriate atrophy. No acute findings. Alfred Abraham MD Femur X-Ray 09/24/17 0000 Signed Impressions: Service Date/Time: Sunday, September 24, 2017 17:53 - CONCLUSION: No evidence of recent bony injury. Alfred Abraham MD Chest X-Ray 09/24/17 0000 Signed Impressions: Service Date/Time: Sunday, September 24, 2017 17:51 - CONCLUSION: The lungs are clear. Alfred Abraham MD Cervical Spine CT 09/24/17 0000 Signed Impressions: Service Date/Time: Sunday, September 24, 2017 18:19 - CONCLUSION: 1. No evidence of fracture or subluxation. 2. Multilevel degenerative changes. Alfred Abraham MD Carotid Artery Ultrasound 09/24/17 0000 Signed Impressions: Service Date/Time: Sunday, September 24, 2017 21:58 - CONCLUSION: 1. Nondiagnostic study on the right side and cannot confirm the presence of internal carotid artery flow. 2. Abnormal hemodynamic profile on the left side characteristic of 50-70%% stenosis. 3. May consider performing either CTA or MRA to further evaluate for the presence of flow in the right carotid and to characterize the severity of disease on left side. Alfred Abraham MD Objective Remarks GENERAL: Obese female lying in bed SKIN: No rashes, ecchymoses or lesions. Cool and dry. NECK: Trachea midline. No JVD or lymphadenopathy. Supple, nontender, no meningeal signs. CARDIOVASCULAR: Regular rate and rhythm without murmurs, gallops, or rubs. RESPIRATORY: Clear to auscultation. Breath sounds equal bilaterally. No wheezes , rales, or rhonchi. GASTROINTESTINAL: Abdomen soft, non-tender, nondistended. No guarding. MUSCULOSKELETAL: Right lower extremity in a cast no gross deformities or ecchymoses. NEUROLOGICAL: Awake and alert. Cranial nerves II through XII intact. Motor and sensory grossly within normal limits. Normal speech. No significant change in PE from previous Procedures ORIF malleolar fx A/P Problem List: (1) Trimalleolar fracture ICD Code: S82.853A - Displaced trimalleolar fracture of unspecified lower leg, initial encounter for closed fracture Status: Acute (2) Near syncope ICD Code: R55 - Syncope and collapse Status: Acute (3) Fall ICD Code: W19.XXXA - Unspecified fall, initial encounter Status: Acute Assessment and Plan 82-year-old female with past medical history significant for hypertension and hyperlipidemia presents after syncopal episode where she sustained a trimalleolar fracture. 1. Trimalleolar fracture of right extremity status post repair. Stable continue postoperative care with pain management with Lortab and IV morphine sulfate, PT, wound care and DVT prophylaxis with SCD. 2. Syncopal episode. Patient reports of dizziness prior to brief syncope. She is orthostatic secondary to dehydration will continue to hold Norvasc. She still on IV fluids EKG with nonspecific ST-T wave changes. Heart rate 63. Normal sinus rhythm. Reviewed by me. Monitor on telemetry Syncopal workup negative. Unremarkable echocardiogram, brain MRI, head MRA and carotid MRA as well as EEG. 3. Hypertension/GERD Continue to hold 4. Sleep apnea continue C Pap with home settings. Wean oxygen 5. Acute kidney injury likely secondary to dehydration. Nonoliguric. Improving. IV hydration until tonight. Avoid nephrotoxins. Repeat BMP in the morning 6. Constipation. Continue Mckenzie-Colace and monitor Discharge Planning Discharge to rehabilitation when arranged. She is fit to fly. Problem Qualifiers (1) Trimalleolar fracture: Qualified Codes: S82.851A - Displaced trimalleolar fracture of right lower leg , initial encounter for closed fracture (2) Fall: Qualified Codes: W19.XXXA - Unspecified fall, initial encounter Dewey Leal MD Sep 28, 2017 08:58
[2017-09-28] MEDS: SODIUM CHLORIDE 0.9% FLUSH 10 ML FLUSH IV FLUSH SCH ×2 (09:00→20:28)
[2017-09-28] MEDS: ENOXAPARIN SODIUM 40 MG/0.4 ML SYRINGE SQ SCH (09:13)
[2017-09-28] MEDS: ATORVASTATIN 20 MG TAB PO SCH (20:25)
[2017-09-29] VITALS (10 sets, daily range): BP systolic 118–191; BP diastolic 50–85; PULSE 63–90; RESP 18–20; TEMP 97.1–98.7; O2SAT 93–100
[2017-09-29 05:53] LABS: BICARBONATE 24.7 MEQ/L (21.0-32.0); MAGNESIUM 1.8 MG/DL (1.5-2.5); POTASSIUM 3.9 MEQ/L (3.5-5.1)
--- NOTE | 2017-09-29 07:08 | PD.ORT.PN ---
Subjective Subjective Remarks Patient resting comfortably. Pain relatively well controlled. Denies shortness of breath or chest pain. Denies nausea vomiting. Objective Vitals Vital Signs Date Time Temp Pulse Resp B/P (MAP) Pulse Ox O2 Delivery O2 Flow Rate FiO2 09/29/17 04:00 97.1 84 20 147/68 (94) 100 09/29/17 00:51 98.6 90 20 155/76 (102) 93 09/28/17 23:31 83 09/28/17 20:00 82 09/28/17 20:00 100 Nasal Cannula 2.00 09/28/17 19:59 99.2 80 18 161/67 (98) 100 09/28/17 17:57 99 Nasal Cannula 2.00 09/28/17 16:00 98.6 81 18 139/57 (84) 99 09/28/17 12:00 99.0 76 18 121/58 (79) 99 09/28/17 09:19 98 Nasal Cannula 2.00 09/28/17 08:00 98.7 77 18 125/50 (75) 99 I/O 09/28/17 09/28/17 09/28/17 09/29/17 09/29/17 09/29/17 07:00 15:00 23:00 07:00 15:00 23:00 Intake Total 720 ml Balance 720 ml Intake Oral 720 ml # Voids 3 5 2 2 # Bowel Movements 0 0 Result Diagram: 09/25/17 0435 09/29/17 0449 Objective Remarks aaox3. nad RLE: Ankle in short leg splint. dressing CDI. NVI Assessment & Plan Assessment and Plan POD 4- Open reduction internal fixation right medial and lateral malleolus fractures doing well. no issues. lovenox no dressing changes [facility] 07[facility]
[2017-09-29] MEDS: PANTOPRAZOLE SOD 40 MG DELAYED RELEASE TAB PO SCH (07:47)
[2017-09-29] MEDS: DOCUSATE SODIUM 50 MG/SENNA 8.6 MG TAB PO SCH ×2 (07:47→19:56)
[2017-09-29] MEDS: POLYETHYLENE GLYCOL 17 GM PKG PO SCH (07:50)
[2017-09-29] MEDS: SODIUM CHLORIDE 0.9% FLUSH 10 ML FLUSH IV FLUSH SCH ×2 (07:51→19:57)
[2017-09-29] MEDS ORDERED: NS + KCL 20 MEQ INJ 1,000 ML IV PRN (08:00)
--- NOTE | 2017-09-29 08:03 | HHI.PR ---
Subjective Remarks Follow-up Constipation. States she was sick last night and vomited. Denies abdominal pain. Still no BM but passing flatus. Today she is feeling better. Discussed with charge nurse Objective Vitals Vital Signs Date Time Temp Pulse Resp B/P (MAP) Pulse Ox O2 Delivery O2 Flow Rate FiO2 09/29/17 07:21 97.4 74 18 142/69 (93) 100 09/29/17 04:00 97.1 84 20 147/68 (94) 100 09/29/17 00:51 98.6 90 20 155/76 (102) 93 09/28/17 23:31 83 09/28/17 20:00 82 09/28/17 20:00 100 Nasal Cannula 2.00 09/28/17 19:59 99.2 80 18 161/67 (98) 100 09/28/17 17:57 99 Nasal Cannula 2.00 09/28/17 16:00 98.6 81 18 139/57 (84) 99 09/28/17 12:00 99.0 76 18 121/58 (79) 99 09/28/17 09:19 98 Nasal Cannula 2.00 I/O 09/28/17 09/28/17 09/28/17 09/29/17 09/29/17 09/29/17 07:00 15:00 23:00 07:00 15:00 23:00 Intake Total 720 ml Balance 720 ml Intake Oral 720 ml # Voids 3 5 2 2 # Bowel Movements 0 0 Result Diagram: 09/25/17 0435 09/29/17 0449 Imaging Last Impressions Neck Magnetic Resonance Angiography 09/25/17 0000 Signed Impressions: Service Date/Time: Monday, September 25, 2017 16:34 - CONCLUSION: 1. No evidence of vessel occlusion. 2. Mild ostial stenosis at the origin of both external carotid arteries. Alfred Abraham MD Head Magnetic Resonance Angiography 09/25/17 0000 Signed Impressions: Service Date/Time: Monday, September 25, 2017 16:34 - CONCLUSION: No evidence of vessel truncation. Alfred Abraham MD Brain MRI 09/25/17 0000 Signed Impressions: Service Date/Time: Monday, September 25, 2017 16:34 - CONCLUSION: 1. No acute intracranial abnormality. 2. Chronic small vessel ischemic change. Alfred Desouza Jr., MD Ankle X-Ray 09/25/17 0000 Signed Impressions: Service Date/Time: Monday, September 25, 2017 08:00 - CONCLUSION: Fracture fixation as above Lamont Cuello MD Tibia/Fibula X-Ray 09/24/17 0000 Signed Impressions: Service Date/Time: Sunday, September 24, 2017 18:02 - CONCLUSION: Trimalleolar ankle fracture. Alfred Abraham MD Thoracic Spine X-Ray 09/24/17 0000 Signed Impressions: Service Date/Time: Sunday, September 24, 2017 17:58 - CONCLUSION: 1. No evidence of compression deformity or spondylolisthesis. 2. Moderately advanced paravertebral ossification related to discogenic changes. Alfred Abraham MD Knee X-Ray 09/24/17 0000 Signed Impressions: Service Date/Time: Sunday, September 24, 2017 18:13 - CONCLUSION: No evidence of recent bony injury. Alfred Abraham MD Hip and Pelvis X-Ray 09/24/17 0000 Signed Impressions: Service Date/Time: Sunday, September 24, 2017 17:52 - CONCLUSION: Intact right total hip arthroplasty. The bony pelvic ring is intact. Alfred Abraham MD Head CT 09/24/17 0000 Signed Impressions: Service Date/Time: Sunday, September 24, 2017 18:19 - CONCLUSION: Age-appropriate atrophy. No acute findings. Alfred Abraham MD Femur X-Ray 09/24/17 0000 Signed Impressions: Service Date/Time: Sunday, September 24, 2017 17:53 - CONCLUSION: No evidence of recent bony injury. Alfred Abraham MD Chest X-Ray 09/24/17 0000 Signed Impressions: Service Date/Time: Sunday, September 24, 2017 17:51 - CONCLUSION: The lungs are clear. Alfred Abraham MD Cervical Spine CT 09/24/17 0000 Signed Impressions: Service Date/Time: Sunday, September 24, 2017 18:19 - CONCLUSION: 1. No evidence of fracture or subluxation. 2. Multilevel degenerative changes. Alfred Abraham MD Carotid Artery Ultrasound 09/24/17 0000 Signed Impressions: Service Date/Time: Sunday, September 24, 2017 21:58 - CONCLUSION: 1. Nondiagnostic study on the right side and cannot confirm the presence of internal carotid artery flow. 2. Abnormal hemodynamic profile on the left side characteristic of 50-70%% stenosis. 3. May consider performing either CTA or MRA to further evaluate for the presence of flow in the right carotid and to characterize the severity of disease on left side. Alfred Abraham MD Objective Remarks GENERAL: Obese female lying in bed. No signs of dehydration SKIN: No rashes, ecchymoses or lesions. Cool and dry. NECK: Trachea midline. No JVD or lymphadenopathy. Supple, nontender, no meningeal signs. CARDIOVASCULAR: Regular rate and rhythm without murmurs, gallops, or rubs. RESPIRATORY: Clear to auscultation. Breath sounds equal bilaterally. No wheezes , rales, or rhonchi. GASTROINTESTINAL: Abdomen soft, non-tender, nondistended. No guarding. MUSCULOSKELETAL: Right lower extremity in a cast no gross deformities or ecchymoses. NEUROLOGICAL: Awake and alert. Cranial nerves II through XII intact. Motor and sensory grossly within normal limits. Normal speech. Procedures ORIF malleolar fx A/P Problem List: (1) Trimalleolar fracture ICD Code: S82.853A - Displaced trimalleolar fracture of unspecified lower leg, initial encounter for closed fracture Status: Acute (2) Near syncope ICD Code: R55 - Syncope and collapse Status: Acute (3) Fall ICD Code: W19.XXXA - Unspecified fall, initial encounter Status: Acute Assessment and Plan 82-year-old female with past medical history significant for hypertension and hyperlipidemia presents after syncopal episode where she sustained a trimalleolar fracture. 1. Trimalleolar fracture of right extremity status post repair. Stable continue postoperative care with pain management with Lortab and IV morphine sulfate, PT, wound care and DVT prophylaxis with SCD. 2. Syncopal episode 2/2 orthostatic secondary to dehydration will continue to hold Norvasc. Resolved orthostasis EKG with nonspecific ST-T wave changes. Heart rate 63. Normal sinus rhythm. Reviewed by me. Monitor on telemetry Syncopal workup negative. Unremarkable echocardiogram, brain MRI, head MRA and carotid MRA as well as EEG. 3. Hypertension/GERD Continue to hold Norvasc 4. Sleep apnea continue C Pap with home settings. Wean oxygen 5. Acute kidney injury likely secondary to dehydration. Nonoliguric. Improving status post hydration. Avoid nephrotoxins. 6. Constipation. Patient vomited last night. Add MiraLAX. Continue rest of bowel regimen and monitor. Discharge Planning Discharge to rehabilitation when arranged. She is fit to fly if vomiting improves Problem Qualifiers (1) Trimalleolar fracture: Qualified Codes: S82.851A - Displaced trimalleolar fracture of right lower leg , initial encounter for closed fracture (2) Fall: Qualified Codes: W19.XXXA - Unspecified fall, initial encounter Dewey Leal MD Sep 29, 2017 08:03
[2017-09-29] MEDS: ENOXAPARIN SODIUM 40 MG/0.4 ML SYRINGE SQ SCH (10:00)
[2017-09-29] MEDS: ACETAMINOPHEN/HYDROcodone 325 MG/10 MG TAB PO PRN (19:56)
[2017-09-29] MEDS: ATORVASTATIN 20 MG TAB PO SCH (19:56)
[2017-09-30] VITALS (7 sets, daily range): BP systolic 135–163; BP diastolic 55–84; PULSE 67–89; RESP 18; TEMP 96.9–98.6; O2SAT 92–100
[2017-09-30] MEDS: ACETAMINOPHEN/HYDROcodone 325 MG/10 MG TAB PO PRN ×3 (06:02→19:44)
[2017-09-30] MEDS: SENNOSIDES 8.6 MG TAB PO PRN (06:35)
[2017-09-30] MEDS: LACTULOSE SYRUP 20 GM/30 ML CUP PO PRN (06:35)
--- NOTE | 2017-09-30 06:52 | PD.ORT.PN ---
Subjective Subjective Remarks POD 5 s/p ORIF right ankle patient struggling with ambulating and reports she is very weak. patient lives in [place] and awaiting transport back to [place] Objective Vitals Vital Signs Date Time Temp Pulse Resp B/P (MAP) Pulse Ox O2 Delivery O2 Flow Rate FiO2 09/30/17 03:22 98.6 83 18 145/62 (89) 93 09/29/17 23:29 98.6 69 18 135/61 (85) 98 09/29/17 21:44 97 Nasal Cannula 2.00 09/29/17 19:23 98.7 63 18 141/65 (90) 97 09/29/17 16:00 98.3 78 18 133/50 (77) 94 09/29/17 12:00 98.1 72 18 118/52 (74) 100 09/29/17 11:33 100 2.00 09/29/17 07:21 97.4 74 18 142/69 (93) 100 09/29/17 07:15 74 09/29/17 07:15 Nasal Cannula I/O 09/29/17 09/29/17 09/29/17 09/30/17 09/30/17 09/30/17 07:00 15:00 23:00 07:00 15:00 23:00 Intake Total 600 ml 480 ml 480 ml Balance 600 ml 480 ml 480 ml Intake Oral 600 ml 480 ml 480 ml # Voids 2 5 6 6 # Bowel Movements 0 1 0 0 Result Diagram: 09/29/17 0449 Objective Remarks RLE: Ankle in short leg splint. dressing CDI. NVI Assessment & Plan Assessment and Plan POD 5 - Open reduction internal fixation right medial and lateral malleolus fractures doing well. no issues. lovenox no dressing changes NWB dc planning- pending transport to [place] ortho cleared for DC when arrangements made may need short term stay in rehab if unable to ambulate sufficiently for transport back to [place] will need follow up with Ortho in 2 weeks Vel Ward/[facility] SAM Sep 30, 2017 06:51
[2017-09-30] MEDS: DOCUSATE SODIUM 50 MG/SENNA 8.6 MG TAB PO SCH ×2 (09:40→19:50)
[2017-09-30] MEDS: ENOXAPARIN SODIUM 40 MG/0.4 ML SYRINGE SQ SCH (09:40)
[2017-09-30] MEDS: PANTOPRAZOLE SOD 40 MG DELAYED RELEASE TAB PO SCH (09:40)
[2017-09-30] MEDS: POLYETHYLENE GLYCOL 17 GM PKG PO SCH (09:41)
[2017-09-30] MEDS: SODIUM CHLORIDE 0.9% FLUSH 10 ML FLUSH IV FLUSH SCH ×2 (09:41→19:50)
[2017-09-30] MEDS ORDERED: cloNIDine HCL 0.1 MG TAB PO PRN (09:45)
--- NOTE | 2017-09-30 09:45 | HHI.PR ---
Subjective Remarks Follow-up constipation. She had a bowel movement yesterday. Denies nausea and abdominal pain. BP elevated denies headache or dizziness. Seen with son. Discussed with RN Objective Vitals Vital Signs Date Time Temp Pulse Resp B/P (MAP) Pulse Ox O2 Delivery O2 Flow Rate FiO2 09/30/17 08:00 97.7 71 18 161/69 (99) 99 09/30/17 03:22 98.6 83 18 145/62 (89) 93 09/29/17 23:29 98.6 69 18 135/61 (85) 98 09/29/17 21:44 97 Nasal Cannula 2.00 09/29/17 19:23 98.7 63 18 141/65 (90) 97 09/29/17 16:00 98.3 78 18 133/50 (77) 94 09/29/17 12:00 98.1 72 18 118/52 (74) 100 09/29/17 11:33 100 2.00 I/O 09/29/17 09/29/17 09/29/17 09/30/17 09/30/17 09/30/17 07:00 15:00 23:00 07:00 15:00 23:00 Intake Total 600 ml 480 ml 480 ml Balance 600 ml 480 ml 480 ml Intake Oral 600 ml 480 ml 480 ml # Voids 2 5 6 6 # Bowel Movements 0 1 0 0 Result Diagram: 09/29/17 0449 Imaging Last Impressions Neck Magnetic Resonance Angiography 09/25/17 0000 Signed Impressions: Service Date/Time: Monday, September 25, 2017 16:34 - CONCLUSION: 1. No evidence of vessel occlusion. 2. Mild ostial stenosis at the origin of both external carotid arteries. Alfred Abraham MD Head Magnetic Resonance Angiography 09/25/17 0000 Signed Impressions: Service Date/Time: Monday, September 25, 2017 16:34 - CONCLUSION: No evidence of vessel truncation. Alfred Abraham MD Brain MRI 09/25/17 0000 Signed Impressions: Service Date/Time: Monday, September 25, 2017 16:34 - CONCLUSION: 1. No acute intracranial abnormality. 2. Chronic small vessel ischemic change. Alfred Desouza Jr., MD Ankle X-Ray 09/25/17 0000 Signed Impressions: Service Date/Time: Monday, September 25, 2017 08:00 - CONCLUSION: Fracture fixation as above Lamont Cuello MD Tibia/Fibula X-Ray 09/24/17 0000 Signed Impressions: Service Date/Time: Sunday, September 24, 2017 18:02 - CONCLUSION: Trimalleolar ankle fracture. Alfred Abraham MD Thoracic Spine X-Ray 09/24/17 0000 Signed Impressions: Service Date/Time: Sunday, September 24, 2017 17:58 - CONCLUSION: 1. No evidence of compression deformity or spondylolisthesis. 2. Moderately advanced paravertebral ossification related to discogenic changes. Alfred Abraham MD Knee X-Ray 09/24/17 0000 Signed Impressions: Service Date/Time: Sunday, September 24, 2017 18:13 - CONCLUSION: No evidence of recent bony injury. Alfred Abraham MD Hip and Pelvis X-Ray 09/24/17 0000 Signed Impressions: Service Date/Time: Sunday, September 24, 2017 17:52 - CONCLUSION: Intact right total hip arthroplasty. The bony pelvic ring is intact. Alfred Abraham MD Head CT 09/24/17 0000 Signed Impressions: Service Date/Time: Sunday, September 24, 2017 18:19 - CONCLUSION: Age-appropriate atrophy. No acute findings. Alfred Abraham MD Femur X-Ray 09/24/17 0000 Signed Impressions: Service Date/Time: Sunday, September 24, 2017 17:53 - CONCLUSION: No evidence of recent bony injury. Alfred Abraham MD Chest X-Ray 09/24/17 0000 Signed Impressions: Service Date/Time: Sunday, September 24, 2017 17:51 - CONCLUSION: The lungs are clear. Alfred Abraham MD Cervical Spine CT 09/24/17 0000 Signed Impressions: Service Date/Time: Sunday, September 24, 2017 18:19 - CONCLUSION: 1. No evidence of fracture or subluxation. 2. Multilevel degenerative changes. Alfred Abraham MD Carotid Artery Ultrasound 09/24/17 0000 Signed Impressions: Service Date/Time: Sunday, September 24, 2017 21:58 - CONCLUSION: 1. Nondiagnostic study on the right side and cannot confirm the presence of internal carotid artery flow. 2. Abnormal hemodynamic profile on the left side characteristic of 50-70%% stenosis. 3. May consider performing either CTA or MRA to further evaluate for the presence of flow in the right carotid and to characterize the severity of disease on left side. Alfred Abraham MD Objective Remarks GENERAL: Obese female lying in bed. SKIN: No rashes, ecchymoses or lesions. Cool and dry. NECK: Trachea midline. No JVD or lymphadenopathy. Supple, nontender, no meningeal signs. CARDIOVASCULAR: Regular rate and rhythm without murmurs, gallops, or rubs. RESPIRATORY: Clear to auscultation. Breath sounds equal bilaterally. No wheezes , rales, or rhonchi. GASTROINTESTINAL: Abdomen soft, non-tender, nondistended. No guarding. MUSCULOSKELETAL: Right lower extremity in a cast no gross deformities or ecchymoses. NEUROLOGICAL: Awake and alert. Cranial nerves II through XII intact. Motor and sensory grossly within normal limits. Normal speech. Procedures ORIF malleolar fx A/P Problem List: (1) Trimalleolar fracture ICD Code: S82.853A - Displaced trimalleolar fracture of unspecified lower leg, initial encounter for closed fracture Status: Acute (2) Near syncope ICD Code: R55 - Syncope and collapse Status: Acute (3) Fall ICD Code: W19.XXXA - Unspecified fall, initial encounter Status: Acute Assessment and Plan 82-year-old female with past medical history significant for hypertension and hyperlipidemia presents after syncopal episode where she sustained a trimalleolar fracture. 1. Trimalleolar fracture of right extremity status post repair. Stable continue postoperative care with pain management with Lortab and IV morphine sulfate, PT, wound care and DVT prophylaxis with SCD. 2. Syncopal episode 2/2 orthostatic secondary to dehydration. Resolved orthostasis EKG with nonspecific ST-T wave changes. Heart rate 63. Normal sinus rhythm. Reviewed by me. Monitor on telemetry Syncopal workup negative. Unremarkable echocardiogram, brain MRI, head MRA and carotid MRA as well as EEG. 3. Hypertension/GERD. BP creeping up restart Norvasc 4. Sleep apnea continue C Pap with home settings. Wean oxygen 5. Acute kidney injury likely secondary to dehydration. Nonoliguric. Improving status post hydration. Avoid nephrotoxins. 6. Constipation. Improved. Continue bowel regimen and monitor. 7, Deconditioning. OOB , PT Discharge Planning Discharge to rehabilitation when arranged. She is fit to [place] Problem Qualifiers (1) Trimalleolar fracture: Qualified Codes: S82.851A - Displaced trimalleolar fracture of right lower leg , initial encounter for closed fracture (2) Fall: Qualified Codes: W19.XXXA - Unspecified fall, initial encounter Dewey Leal MD Sep 30, 2017 09:45
[2017-09-30] MEDS: ATORVASTATIN 20 MG TAB PO SCH (19:44)
[2017-10-01] VITALS (7 sets, daily range): BP systolic 121–182; BP diastolic 60–74; PULSE 63–87; RESP 17–19; TEMP 96.6–97.8; O2SAT 95–100
--- NOTE | 2017-10-01 06:41 | PD.ORT.PN ---
Subjective Subjective Remarks Resting comfortably with no new complaints Objective Vitals Vital Signs Date Time Temp Pulse Resp B/P (MAP) Pulse Ox O2 Delivery O2 Flow Rate FiO2 10/01/17 00:43 65 09/30/17 23:08 97.1 67 18 135/62 (86) 92 09/30/17 20:31 96.9 89 18 135/61 (85) 94 09/30/17 19:27 97 Nasal Cannula 2.00 09/30/17 16:00 96.9 71 18 143/55 (84) 100 09/30/17 13:08 Nasal Cannula 2.00 09/30/17 12:00 97.5 80 18 163/84 (110) 99 09/30/17 08:00 97.7 71 18 161/69 (99) 99 I/O 09/30/17 09/30/17 09/30/17 10/01/17 10/01/17 10/01/17 07:00 15:00 23:00 07:00 15:00 23:00 Intake Total 480 ml 480 ml 480 ml 240 ml Balance 480 ml 480 ml 480 ml 240 ml Intake Oral 480 ml 480 ml 480 ml 240 ml # Voids 6 2 3 4 # Bowel Movements 0 1 3 0 Result Diagram: 09/29/17 0449 Objective Remarks RLE: Ankle in short leg splint. dressing CDI. NVI Assessment & Plan Assessment and Plan POD 6 - Open reduction internal fixation right medial and lateral malleolus fractures lovenox Maintain splint NWB dc planning- pending transport to [place] ortho cleared for DC when arrangements made may need short term stay in rehab if unable to ambulate sufficiently for transport back to [place] will need follow up with Ortho in 2 weeks Ovi Moreno Jr. Oct 01, 2017 06:41
[2017-10-01] MEDS: amLODIPine BESYLATE 5 MG TAB PO SCH (08:01)
[2017-10-01] MEDS: ACETAMINOPHEN/HYDROcodone 325 MG/10 MG TAB PO PRN ×4 (08:02→20:32)
[2017-10-01] MEDS: POLYETHYLENE GLYCOL 17 GM PKG PO SCH (08:03)
[2017-10-01] MEDS: DOCUSATE SODIUM 50 MG/SENNA 8.6 MG TAB PO SCH ×2 (08:03→21:00)
[2017-10-01] MEDS: PANTOPRAZOLE SOD 40 MG DELAYED RELEASE TAB PO SCH (08:04)
[2017-10-01] MEDS: SODIUM CHLORIDE 0.9% FLUSH 10 ML FLUSH IV FLUSH SCH ×2 (08:05→21:00)
--- NOTE | 2017-10-01 09:28 | HHI.PR ---
Subjective Remarks Follow-up orthopedic injury and acute kidney injury. She is feeling weak today. She had 4 bowel movements yesterday. None today. Discussed with RN Objective Vitals Vital Signs Date Time Temp Pulse Resp B/P (MAP) Pulse Ox O2 Delivery O2 Flow Rate FiO2 10/01/17 07:58 97.4 87 19 182/72 (108) 97 10/01/17 00:43 65 09/30/17 23:08 97.1 67 18 135/62 (86) 92 09/30/17 20:31 96.9 89 18 135/61 (85) 94 09/30/17 19:27 97 Nasal Cannula 2.00 09/30/17 16:00 96.9 71 18 143/55 (84) 100 09/30/17 13:08 Nasal Cannula 2.00 09/30/17 12:00 97.5 80 18 163/84 (110) 99 I/O 09/30/17 09/30/17 09/30/17 10/01/17 10/01/17 10/01/17 07:00 15:00 23:00 07:00 15:00 23:00 Intake Total 480 ml 480 ml 480 ml 240 ml Balance 480 ml 480 ml 480 ml 240 ml Intake Oral 480 ml 480 ml 480 ml 240 ml # Voids 6 2 3 4 # Bowel Movements 0 1 3 0 Result Diagram: 09/29/17 0449 Imaging Last Impressions Neck Magnetic Resonance Angiography 09/25/17 0000 Signed Impressions: Service Date/Time: Monday, September 25, 2017 16:34 - CONCLUSION: 1. No evidence of vessel occlusion. 2. Mild ostial stenosis at the origin of both external carotid arteries. Alfred Abraham MD Head Magnetic Resonance Angiography 09/25/17 0000 Signed Impressions: Service Date/Time: Monday, September 25, 2017 16:34 - CONCLUSION: No evidence of vessel truncation. Alfred Abraham MD Brain MRI 09/25/17 0000 Signed Impressions: Service Date/Time: Monday, September 25, 2017 16:34 - CONCLUSION: 1. No acute intracranial abnormality. 2. Chronic small vessel ischemic change. Alfred Desouza Jr., MD Ankle X-Ray 09/25/17 0000 Signed Impressions: Service Date/Time: Monday, September 25, 2017 08:00 - CONCLUSION: Fracture fixation as above Lamont Cuello MD Tibia/Fibula X-Ray 09/24/17 0000 Signed Impressions: Service Date/Time: Sunday, September 24, 2017 18:02 - CONCLUSION: Trimalleolar ankle fracture. Alfred Abraham MD Thoracic Spine X-Ray 09/24/17 0000 Signed Impressions: Service Date/Time: Sunday, September 24, 2017 17:58 - CONCLUSION: 1. No evidence of compression deformity or spondylolisthesis. 2. Moderately advanced paravertebral ossification related to discogenic changes. Alfred Abraham MD Knee X-Ray 09/24/17 0000 Signed Impressions: Service Date/Time: Sunday, September 24, 2017 18:13 - CONCLUSION: No evidence of recent bony injury. Alfred Abraham MD Hip and Pelvis X-Ray 09/24/17 0000 Signed Impressions: Service Date/Time: Sunday, September 24, 2017 17:52 - CONCLUSION: Intact right total hip arthroplasty. The bony pelvic ring is intact. Alfred Abraham MD Head CT 09/24/17 0000 Signed Impressions: Service Date/Time: Sunday, September 24, 2017 18:19 - CONCLUSION: Age-appropriate atrophy. No acute findings. Alfred Abraham MD Femur X-Ray 09/24/17 0000 Signed Impressions: Service Date/Time: Sunday, September 24, 2017 17:53 - CONCLUSION: No evidence of recent bony injury. Alfred Abraham MD Chest X-Ray 09/24/17 0000 Signed Impressions: Service Date/Time: Sunday, September 24, 2017 17:51 - CONCLUSION: The lungs are clear. Alfred Abraham MD Cervical Spine CT 09/24/17 0000 Signed Impressions: Service Date/Time: Sunday, September 24, 2017 18:19 - CONCLUSION: 1. No evidence of fracture or subluxation. 2. Multilevel degenerative changes. Alfred Abraham MD Carotid Artery Ultrasound 09/24/17 0000 Signed Impressions: Service Date/Time: Sunday, September 24, 2017 21:58 - CONCLUSION: 1. Nondiagnostic study on the right side and cannot confirm the presence of internal carotid artery flow. 2. Abnormal hemodynamic profile on the left side characteristic of 50-70%% stenosis. 3. May consider performing either CTA or MRA to further evaluate for the presence of flow in the right carotid and to characterize the severity of disease on left side. Alfred Abraham MD Objective Remarks GENERAL: Obese female lying in bed. Looks weak SKIN: No rashes, ecchymoses or lesions. Cool and dry. NECK: Trachea midline. No JVD or lymphadenopathy. Supple, nontender, no meningeal signs. CARDIOVASCULAR: Regular rate and rhythm without murmurs, gallops, or rubs. RESPIRATORY: Clear to auscultation. Breath sounds equal bilaterally. No wheezes , rales, or rhonchi. GASTROINTESTINAL: Abdomen soft, non-tender, nondistended. No guarding. MUSCULOSKELETAL: Right lower extremity in a cast no gross deformities or ecchymoses. NEUROLOGICAL: Awake and alert. Cranial nerves II through XII intact. Motor and sensory grossly within normal limits. Normal speech. Procedures ORIF malleolar fx A/P Problem List: (1) Trimalleolar fracture ICD Code: S82.853A - Displaced trimalleolar fracture of unspecified lower leg, initial encounter for closed fracture Status: Acute (2) Near syncope ICD Code: R55 - Syncope and collapse Status: Acute (3) Fall ICD Code: W19.XXXA - Unspecified fall, initial encounter Status: Acute Assessment and Plan 82-year-old female with past medical history significant for hypertension and hyperlipidemia presents after syncopal episode where she sustained a trimalleolar fracture. 1. Trimalleolar fracture of right extremity status post repair. Stable continue postoperative care with pain management with Lortab and IV morphine sulfate, PT, wound care and DVT prophylaxis with SCD. 2. Syncopal episode 2/2 orthostatic secondary to dehydration. Resolved orthostasis EKG with nonspecific ST-T wave changes. Heart rate 63. Normal sinus rhythm. Reviewed by me. Monitor on telemetry Syncopal workup negative. Unremarkable echocardiogram, brain MRI, head MRA and carotid MRA as well as EEG. 3. Hypertension/GERD. BP improving continue Norvasc 4. Sleep apnea continue C Pap with home settings. Wean oxygen 5. Acute kidney injury likely secondary to dehydration. Nonoliguric. Slightly worse secondary to loose stools. IV fluid for 1 L. Avoid nephrotoxins. 6. Constipation. Resolved. Develop loose stool yesterday. Continue bowel regimen with hold parameters and monitor. 7, Deconditioning. OOB , PT Discharge Planning Discharge to rehabilitation when arranged. She is fit to fly. She has [place] insurance Problem Qualifiers (1) Trimalleolar fracture: Qualified Codes: S82.851A - Displaced trimalleolar fracture of right lower leg , initial encounter for closed fracture (2) Fall: Qualified Codes: W19.XXXA - Unspecified fall, initial encounter Dewey Leal MD Oct 01, 2017 09:28
[2017-10-01] MEDS: ENOXAPARIN SODIUM 40 MG/0.4 ML SYRINGE SQ SCH (10:37)
[2017-10-01 12:39] LABS: AUTOMATED NEUTROPHIL # 4.8 TH/MM3 (1.8-7.7); BASOPHIL % 0.6 % (0.0-2.0); EOSINOPHIL # 0.5 TH/MM3 (0-0.4); EOSINOPHIL % 6.5 % (0.0-4.0); HEMATOCRIT 33.6 % (35.0-46.0); HEMO FLAGS DIFF FINAL; LYMPH % 22.6 % (9.0-44.0); LYMPHOCYTE # 1.8 TH/MM3 (1.0-4.8); MEAN CELL VOLUME 84.9 FL (80.0-100.0); MEAN CORPUSCULAR HEMOGLOBIN 27.9 PG (27.0-34.0); MEAN CORPUSCULAR HGB CONC 32.9 % (32.0-36.0); MONO % 11.1 % (0.0-8.0); NEUT % 59.2 % (16.0-70.0); PLATELET COUNT 268 TH/MM3 (150-450); RED BLOOD COUNT 3.96 MIL/MM3 (4.00-5.30); RED CELL DISTRIBUTION WIDTH 12.8 % (11.6-17.2); WHITE BLOOD COUNT 8.2 TH/MM3 (4.0-11.0)
[2017-10-01 13:02] LABS: BICARBONATE 29.5 MEQ/L (21.0-32.0); MAGNESIUM 1.7 MG/DL (1.5-2.5); POTASSIUM 3.8 MEQ/L (3.5-5.1)
[2017-10-01] MEDS ORDERED: SODIUM CHLOR 0.45% 1000 ML INJ 1,000 ML IV SCH (15:00)
[2017-10-01] MEDS: ATORVASTATIN 20 MG TAB PO SCH (20:32)
[2017-10-02] VITALS (9 sets, daily range): BP systolic 111–156; BP diastolic 54–67; PULSE 63–97; RESP 17–18; TEMP 96.7–99.2; O2SAT 93–99
[2017-10-02] MEDS: ACETAMINOPHEN/HYDROcodone 325 MG/10 MG TAB PO PRN ×2 (06:34→10:00)
[2017-10-02 08:10] LABS: BICARBONATE 27.3 MEQ/L (21.0-32.0); MAGNESIUM 1.8 MG/DL (1.5-2.5); POTASSIUM 3.9 MEQ/L (3.5-5.1)
--- NOTE | 2017-10-02 08:40 | HHI.DS ---
Discharge Summary Admission Date Sep 24, 2017 at 21:21 Discharge Date: Oct 04, 2017 Admitting Diagnosis near syncope; trimalleolar fracture (1) Trimalleolar fracture ICD Code: S82.853A - Displaced trimalleolar fracture of unspecified lower leg, initial encounter for closed fracture Status: Acute (2) Near syncope ICD Code: R55 - Syncope and collapse Status: Acute (3) Fall ICD Code: W19.XXXA - Unspecified fall, initial encounter Status: Acute Procedures ORIF malleolar fx Brief History - From Admission 82-year-old female got to the emergency department by EMS after suffering a fall in the shower. The patient reports that she has no memory of the fall, and is unsure if she lost consciousness. She states one moment she was standing up in the shower and the next she was on the ground. She complains of persistent pain in her right hip and right leg. X-rays performed in the emergency department significant for a trimalleolar ankle fracture. X-ray of the pelvis with no bony abnormalities. The patient had a similar syncopal episode approximately 2-3 years ago and cannot remember what workup was done at that time. She denies significant cardiovascular or neurologic history. She is a poor historian but believes she has a history of hypertension and hyperlipidemia. CBC/BMP: 10/01/17 1207 10/02/17 0642 Significant Findings Laboratory Tests Test 10/01/17 12:07 10/02/17 06:42 Red Blood Count 3.96 MIL/MM3 (4.00-5.30) Hemoglobin 11.1 GM/DL (11.6-15.3) Hematocrit 33.6 % (35.0-46.0) Monocytes (%) (Auto) 11.1 % (0.0-8.0) Eosinophils (%) (Auto) 6.5 % (0.0-4.0) Eosinophils # (Auto) 0.5 TH/MM3 (0-0.4) Creatinine 1.32 MG/DL (0.50-1.00) 1.28 MG/DL (0.50-1.00) Estimat Glomerular Filtration Rate 39 ML/MIN (>89) 40 ML/MIN (>89) Imaging Last Impressions Neck Magnetic Resonance Angiography 09/25/17 0000 Signed Impressions: Service Date/Time: Monday, September 25, 2017 16:34 - CONCLUSION: 1. No evidence of vessel occlusion. 2. Mild ostial stenosis at the origin of both external carotid arteries. Alfred Abraham MD Head Magnetic Resonance Angiography 09/25/17 0000 Signed Impressions: Service Date/Time: Monday, September 25, 2017 16:34 - CONCLUSION: No evidence of vessel truncation. Alfred Abraham MD Brain MRI 09/25/17 0000 Signed Impressions: Service Date/Time: Monday, September 25, 2017 16:34 - CONCLUSION: 1. No acute intracranial abnormality. 2. Chronic small vessel ischemic change. Alfred Desouza Jr., MD Ankle X-Ray 09/25/17 0000 Signed Impressions: Service Date/Time: Monday, September 25, 2017 08:00 - CONCLUSION: Fracture fixation as above Lamont Cuello MD Tibia/Fibula X-Ray 09/24/17 0000 Signed Impressions: Service Date/Time: Sunday, September 24, 2017 18:02 - CONCLUSION: Trimalleolar ankle fracture. Alfred Abraham MD Thoracic Spine X-Ray 09/24/17 0000 Signed Impressions: Service Date/Time: Sunday, September 24, 2017 17:58 - CONCLUSION: 1. No evidence of compression deformity or spondylolisthesis. 2. Moderately advanced paravertebral ossification related to discogenic changes. Alfred Abraham MD Knee X-Ray 09/24/17 0000 Signed Impressions: Service Date/Time: Sunday, September 24, 2017 18:13 - CONCLUSION: No evidence of recent bony injury. Alfred Abraham MD Hip and Pelvis X-Ray 09/24/17 0000 Signed Impressions: Service Date/Time: Sunday, September 24, 2017 17:52 - CONCLUSION: Intact right total hip arthroplasty. The bony pelvic ring is intact. Alfred Abraham MD Head CT 09/24/17 0000 Signed Impressions: Service Date/Time: Sunday, September 24, 2017 18:19 - CONCLUSION: Age-appropriate atrophy. No acute findings. Alfred Abraham MD Femur X-Ray 09/24/17 0000 Signed Impressions: Service Date/Time: Sunday, September 24, 2017 17:53 - CONCLUSION: No evidence of recent bony injury. Alfred Abraham MD Chest X-Ray 09/24/17 0000 Signed Impressions: Service Date/Time: Sunday, September 24, 2017 17:51 - CONCLUSION: The lungs are clear. Alfred Abraham MD Cervical Spine CT 09/24/17 0000 Signed Impressions: Service Date/Time: Sunday, September 24, 2017 18:19 - CONCLUSION: 1. No evidence of fracture or subluxation. 2. Multilevel degenerative changes. Alfred Abraham MD Carotid Artery Ultrasound 09/24/17 0000 Signed Impressions: Service Date/Time: Sunday, September 24, 2017 21:58 - CONCLUSION: 1. Nondiagnostic study on the right side and cannot confirm the presence of internal carotid artery flow. 2. Abnormal hemodynamic profile on the left side characteristic of 50-70%% stenosis. 3. May consider performing either CTA or MRA to further evaluate for the presence of flow in the right carotid and to characterize the severity of disease on left side. Alfred Abraham MD PE at Discharge GENERAL: Obese female lying in bed. Looks weak SKIN: No rashes, ecchymoses or lesions. Cool and dry. NECK: Trachea midline. No JVD or lymphadenopathy. Supple, nontender, no meningeal signs. CARDIOVASCULAR: Regular rate and rhythm without murmurs, gallops, or rubs. RESPIRATORY: Clear to auscultation. Breath sounds equal bilaterally. No wheezes , rales, or rhonchi. GASTROINTESTINAL: Abdomen soft, non-tender, nondistended. No guarding. MUSCULOSKELETAL: Right lower extremity in a cast no gross deformities or ecchymoses. NEUROLOGICAL: Awake and alert. Cranial nerves II through XII intact. Motor and sensory grossly within normal limits. Normal speech. Pt update on day of discharge Feels better, plans to travel to [place] today. Patient has all arrangement done for DC. Has no cimplaints at this time. Had a BM yesterday. No n/v/d/c. No fever or chills. Patient wants to have mckeon placed for the trip. Patient has follow up in [place]. No n/v/d/c. Hospital Course 82-year-old female with past medical history significant for hypertension and hyperlipidemia presents after syncopal episode where she sustained a trimalleolar fracture. Trimalleolar fracture of right extremity status post repair. Syncopal episode 2/2 orthostatic secondary to dehydration. Resolved orthostasis. EKG with nonspecific ST-T wave changes. Heart rate 63. Normal sinus rhythm. Syncopal workup negative. Unremarkable echocardiogram, brain MRI, head MRA and carotid MRA as well as EEG. Hypertension/GERD. BP improving continue Norvasc Sleep apnea continue C Pap with home settings. Wean oxygen Patient was cleared for DC by oeo also oK to travel per ortho .Patient plans to travel to [place]. Was discharged in stable condition to f/u as OP with PCP and consultants. Pt Condition on Discharge: Stable Discharge Disposition: Discharge to SNF Discharge Time: > 30 minutes Discharge Instructions DIET: Follow Instructions for: As Tolerated, No Restrictions Activities you can perform: Regular-No Restrictions Activities to Avoid: Driving Follow up Referrals: Orthopedics - 2 Weeks @ [facility] with Ihsan Rodriguez MD PCP Follow-up - 1 Week PCP Follow-up New Medications: Hydrocodone-Acetaminophen (Hydrocodone-Acetaminophen) 7.5 Mg-325 Mg Tab 1 TAB PO Q4H PRN for PAIN, #60 TAB 0 Refills Walker/Adult/Folding (Walker/Adult/Folding) 1 Mis Mis EA .ROUTE DIRECTED, #1 0 Refills Wheelchair Elevated Leg (Wheelchair Elevated Leg) 1 Mis Mis EA .ROUTE DIRECTED, #1 0 Refills Atorvastatin (Atorvastatin) 20 Mg Tab 20 MG PO HS for Cholesterol Management, #30 TAB Enoxaparin Inj (Lovenox Inj) 40 Mg/0.4 Ml Syr 40 MG SQ Q24H for Prevent Blood Clot, #30 INJECTION Continued Medications: Amlodipine (Norvasc) 5 Mg Tab 5 MG PO DAILY for Blood Pressure Management, TAB 0 Refills Lansoprazole (Prevacid) 30 Mg Capdr 30 MG PO DAILY, CAP 0 Refills Discontinued Medications: Celecoxib (Celebrex) 200 Mg Cap 200 MG PO BID for Pain Management, CAP 0 Refills Radha Parekh MD Oct 02, 2017 08:40
[2017-10-02] MEDS: POLYETHYLENE GLYCOL 17 GM PKG PO SCH (09:00)
[2017-10-02] MEDS: DOCUSATE SODIUM 50 MG/SENNA 8.6 MG TAB PO SCH ×2 (09:00→21:18)
[2017-10-02] MEDS: SODIUM CHLORIDE 0.9% FLUSH 10 ML FLUSH IV FLUSH SCH ×2 (09:00→21:18)
[2017-10-02] MEDS: PANTOPRAZOLE SOD 40 MG DELAYED RELEASE TAB PO SCH (10:08)
[2017-10-02] MEDS: amLODIPine BESYLATE 5 MG TAB PO SCH (10:08)
[2017-10-02] MEDS: ENOXAPARIN SODIUM 40 MG/0.4 ML SYRINGE SQ SCH (10:08)
--- NOTE | 2017-10-02 12:49 | HHI.PR ---
Subjective Remarks Follow-up orthopedic injury and acute kidney injury. Says she felt nauseated but is able to keep down some food. No fever or chills. No diarrhea or constipation. Patient says she had more pain in the morning and felt nauseated. Has a h/o GERD and is on PPIs. No fever or chills. No abd pain. Asking for elena gina. Objective Vitals Vital Signs Date Time Temp Pulse Resp B/P (MAP) Pulse Ox O2 Delivery O2 Flow Rate FiO2 10/02/17 12:00 97.5 68 17 151/66 (94) 98 10/02/17 08:00 97.9 69 17 145/54 (84) 98 10/02/17 00:00 96.7 63 17 111/58 (75) 93 10/02/17 00:00 64 10/01/17 19:00 96.6 63 18 164/72 (102) 100 10/01/17 15:30 96.8 68 17 121/74 (90) 100 I/O 10/01/17 10/01/17 10/01/17 10/02/17 10/02/17 10/02/17 07:00 15:00 23:00 07:00 15:00 23:00 Intake Total 240 ml 800 ml 480 ml 480 ml Balance 240 ml 800 ml 480 ml 480 ml Intake Oral 240 ml 800 ml 480 ml 480 ml # Voids 4 3 3 3 # Bowel Movements 0 0 0 Result Diagram: 10/01/17 1207 10/02/17 0642 Imaging Last Impressions Neck Magnetic Resonance Angiography 09/25/17 0000 Signed Impressions: Service Date/Time: Monday, September 25, 2017 16:34 - CONCLUSION: 1. No evidence of vessel occlusion. 2. Mild ostial stenosis at the origin of both external carotid arteries. Alfred Abraham MD Head Magnetic Resonance Angiography 09/25/17 0000 Signed Impressions: Service Date/Time: Monday, September 25, 2017 16:34 - CONCLUSION: No evidence of vessel truncation. Alfred Abraham MD Brain MRI 09/25/17 0000 Signed Impressions: Service Date/Time: Monday, September 25, 2017 16:34 - CONCLUSION: 1. No acute intracranial abnormality. 2. Chronic small vessel ischemic change. Alfred Desouza Jr., MD Ankle X-Ray 09/25/17 0000 Signed Impressions: Service Date/Time: Monday, September 25, 2017 08:00 - CONCLUSION: Fracture fixation as above Lamont Cuello MD Tibia/Fibula X-Ray 09/24/17 0000 Signed Impressions: Service Date/Time: Sunday, September 24, 2017 18:02 - CONCLUSION: Trimalleolar ankle fracture. Alfred Abraham MD Thoracic Spine X-Ray 09/24/17 0000 Signed Impressions: Service Date/Time: Sunday, September 24, 2017 17:58 - CONCLUSION: 1. No evidence of compression deformity or spondylolisthesis. 2. Moderately advanced paravertebral ossification related to discogenic changes. Alfred Abraham MD Knee X-Ray 09/24/17 0000 Signed Impressions: Service Date/Time: Sunday, September 24, 2017 18:13 - CONCLUSION: No evidence of recent bony injury. Alfred Abraham MD Hip and Pelvis X-Ray 09/24/17 0000 Signed Impressions: Service Date/Time: Sunday, September 24, 2017 17:52 - CONCLUSION: Intact right total hip arthroplasty. The bony pelvic ring is intact. Alfred Abraham MD Head CT 09/24/17 0000 Signed Impressions: Service Date/Time: Sunday, September 24, 2017 18:19 - CONCLUSION: Age-appropriate atrophy. No acute findings. Alfred Abraham MD Femur X-Ray 09/24/17 0000 Signed Impressions: Service Date/Time: Sunday, September 24, 2017 17:53 - CONCLUSION: No evidence of recent bony injury. Alfred Abraham MD Chest X-Ray 09/24/17 0000 Signed Impressions: Service Date/Time: Sunday, September 24, 2017 17:51 - CONCLUSION: The lungs are clear. Alfred Abraham MD Cervical Spine CT 09/24/17 0000 Signed Impressions: Service Date/Time: Sunday, September 24, 2017 18:19 - CONCLUSION: 1. No evidence of fracture or subluxation. 2. Multilevel degenerative changes. Alfred Abraham MD Carotid Artery Ultrasound 09/24/17 0000 Signed Impressions: Service Date/Time: Sunday, September 24, 2017 21:58 - CONCLUSION: 1. Nondiagnostic study on the right side and cannot confirm the presence of internal carotid artery flow. 2. Abnormal hemodynamic profile on the left side characteristic of 50-70%% stenosis. 3. May consider performing either CTA or MRA to further evaluate for the presence of flow in the right carotid and to characterize the severity of disease on left side. Alfred Abraham MD Objective Remarks GENERAL: Obese female lying in bed. Looks weak CARDIOVASCULAR: Regular rate and rhythm without murmurs, gallops, or rubs. RESPIRATORY: Clear to auscultation. Breath sounds equal bilaterally. No wheezes , rales, or rhonchi. GASTROINTESTINAL: Abdomen soft, non-tender, nondistended. No guarding. MUSCULOSKELETAL: Right lower extremity in a cast no gross deformities or ecchymoses. NEUROLOGICAL: Awake and alert. Cranial nerves II through XII intact. Motor and sensory grossly within normal limits. Normal speech. Procedures ORIF malleolar fx A/P Problem List: (1) Trimalleolar fracture ICD Code: S82.853A - Displaced trimalleolar fracture of unspecified lower leg, initial encounter for closed fracture Status: Acute (2) Near syncope ICD Code: R55 - Syncope and collapse Status: Acute (3) Fall ICD Code: W19.XXXA - Unspecified fall, initial encounter Status: Acute Assessment and Plan 82-year-old female with past medical history significant for hypertension and hyperlipidemia presents after syncopal episode where she sustained a trimalleolar fracture. Trimalleolar fracture of right extremity status post repair. Stable continue postoperative care with pain management with Lortab and IV morphine sulfate, PT , wound care and DVT prophylaxis with SCD. Syncopal episode 2/2 orthostatic secondary to dehydration. Resolved orthostasis EKG with nonspecific ST-T wave changes. Heart rate 63. Normal sinus rhythm. Reviewed by me. Monitor on telemetry Syncopal workup negative. Unremarkable echocardiogram, brain MRI, head MRA and carotid MRA as well as EEG. Hypertension/GERD. BP improving continue Norvasc Sleep apnea continue C Pap with home settings. Wean oxygen Acute kidney injury likely secondary to dehydration. Nonoliguric. Slightly worse secondary to loose stools. IV fluid for 1 L. Avoid nephrotoxins. Constipation. Continue bowel regimen with hold parameters and monitor. Nausea: Add antiemetics, as need. Deconditioning. OOB , PT Discharge Planning Discharge to rehabilitation when arranged. She is fit to fly. She has [place] insurance Problem Qualifiers (1) Trimalleolar fracture: Qualified Codes: S82.851A - Displaced trimalleolar fracture of right lower leg , initial encounter for closed fracture (2) Fall: Qualified Codes: W19.XXXA - Unspecified fall, initial encounter Radha Parekh MD Oct 02, 2017 12:49
[2017-10-02] MEDS: MORPHINE SULFATE 4 MG/ML INJ IV PUSH PRN (13:05)
[2017-10-02] MEDS ORDERED: PANTOPRAZOLE SOD 20 MG DELAYED RELEASE TAB PO ONE (13:15)
[2017-10-02] MEDS ORDERED: ONDANSETRON HCL 4 MG/2 ML VIAL IVP PRN (13:15)
[2017-10-02] MEDS ORDERED: LACTULOSE SYRUP 20 GM/30 ML CUP PO PRN (14:45)
[2017-10-02] MEDS: ATORVASTATIN 20 MG TAB PO SCH (21:18)
[2017-10-02] MEDS: SENNOSIDES 8.6 MG TAB PO PRN (21:18)
[2017-10-03] VITALS (9 sets, daily range): BP systolic 115–183; BP diastolic 60–78; PULSE 74–84; RESP 16–18; TEMP 98–99.6; O2SAT 93–99
[2017-10-03] MEDS ORDERED: PANTOPRAZOLE SOD 20 MG DELAYED RELEASE TAB PO SCH (09:00)
[2017-10-03] MEDS: POLYETHYLENE GLYCOL 17 GM PKG PO SCH (09:05)
[2017-10-03] MEDS: SODIUM CHLORIDE 0.9% FLUSH 10 ML FLUSH IV FLUSH SCH ×2 (09:05→19:49)
[2017-10-03] MEDS: amLODIPine BESYLATE 5 MG TAB PO SCH (09:05)
[2017-10-03] MEDS: PANTOPRAZOLE SOD 40 MG DELAYED RELEASE TAB PO SCH (09:05)
[2017-10-03] MEDS: DOCUSATE SODIUM 50 MG/SENNA 8.6 MG TAB PO SCH ×2 (09:05→19:49)
[2017-10-03] MEDS: ENOXAPARIN SODIUM 40 MG/0.4 ML SYRINGE SQ SCH (10:01)
[2017-10-03] MEDS: ACETAMINOPHEN/HYDROcodone 325 MG/10 MG TAB PO PRN ×3 (10:02→21:47)
--- NOTE | 2017-10-03 16:06 | HHI.PR ---
Subjective Remarks Had a bowel movement. No nausea or vomiting no diarrhea. Plan to fly to [place] tomorrow. Cleared by orthopedic doctor. Patient denies any abdominal pain. Denies chest pain or shortness of breath. No palpitations. Feels very tired. Pain is fairly controlled by medications. Objective Vitals Vital Signs Date Time Temp Pulse Resp B/P (MAP) Pulse Ox O2 Delivery O2 Flow Rate FiO2 10/03/17 11:26 21 10/03/17 08:00 98.0 84 18 183/74 (110) 97 10/03/17 04:39 98.9 78 18 172/78 (109) 99 10/03/17 03:33 84 10/03/17 00:33 98.7 75 18 159/70 (99) 99 10/02/17 23:47 66 10/02/17 21:17 68 10/02/17 20:46 99.2 77 18 145/67 (93) 99 I/O 10/02/17 10/02/17 10/02/17 10/03/17 10/03/17 10/03/17 07:00 15:00 23:00 07:00 15:00 23:00 Intake Total 480 ml 480 ml 360 ml 240 ml Balance 480 ml 480 ml 360 ml 240 ml Intake Oral 480 ml 480 ml 360 ml 240 ml # Voids 3 3 2 3 # Bowel Movements 0 0 0 0 Result Diagram: 10/01/17 1207 10/02/17 0642 Imaging Last Impressions Neck Magnetic Resonance Angiography 09/25/17 0000 Signed Impressions: Service Date/Time: Monday, September 25, 2017 16:34 - CONCLUSION: 1. No evidence of vessel occlusion. 2. Mild ostial stenosis at the origin of both external carotid arteries. Alfred Abraham MD Head Magnetic Resonance Angiography 09/25/17 0000 Signed Impressions: Service Date/Time: Monday, September 25, 2017 16:34 - CONCLUSION: No evidence of vessel truncation. Alfred Abraham MD Brain MRI 09/25/17 0000 Signed Impressions: Service Date/Time: Monday, September 25, 2017 16:34 - CONCLUSION: 1. No acute intracranial abnormality. 2. Chronic small vessel ischemic change. Alfred Desouza Jr., MD Ankle X-Ray 09/25/17 0000 Signed Impressions: Service Date/Time: Monday, September 25, 2017 08:00 - CONCLUSION: Fracture fixation as above Lamont Cuello MD Tibia/Fibula X-Ray 09/24/17 0000 Signed Impressions: Service Date/Time: Sunday, September 24, 2017 18:02 - CONCLUSION: Trimalleolar ankle fracture. Alfred Abraham MD Thoracic Spine X-Ray 09/24/17 0000 Signed Impressions: Service Date/Time: Sunday, September 24, 2017 17:58 - CONCLUSION: 1. No evidence of compression deformity or spondylolisthesis. 2. Moderately advanced paravertebral ossification related to discogenic changes. Alfred Abraham MD Knee X-Ray 09/24/17 0000 Signed Impressions: Service Date/Time: Sunday, September 24, 2017 18:13 - CONCLUSION: No evidence of recent bony injury. Alfred Abraham MD Hip and Pelvis X-Ray 09/24/17 0000 Signed Impressions: Service Date/Time: Sunday, September 24, 2017 17:52 - CONCLUSION: Intact right total hip arthroplasty. The bony pelvic ring is intact. Alfred Abraham MD Head CT 09/24/17 0000 Signed Impressions: Service Date/Time: Sunday, September 24, 2017 18:19 - CONCLUSION: Age-appropriate atrophy. No acute findings. Alfred Abraham MD Femur X-Ray 09/24/17 0000 Signed Impressions: Service Date/Time: Sunday, September 24, 2017 17:53 - CONCLUSION: No evidence of recent bony injury. Alfred Abraham MD Chest X-Ray 09/24/17 0000 Signed Impressions: Service Date/Time: Sunday, September 24, 2017 17:51 - CONCLUSION: The lungs are clear. Alfred Abraham MD Cervical Spine CT 09/24/17 0000 Signed Impressions: Service Date/Time: Sunday, September 24, 2017 18:19 - CONCLUSION: 1. No evidence of fracture or subluxation. 2. Multilevel degenerative changes. Alfred Abraham MD Carotid Artery Ultrasound 09/24/17 0000 Signed Impressions: Service Date/Time: Sunday, September 24, 2017 21:58 - CONCLUSION: 1. Nondiagnostic study on the right side and cannot confirm the presence of internal carotid artery flow. 2. Abnormal hemodynamic profile on the left side characteristic of 50-70%% stenosis. 3. May consider performing either CTA or MRA to further evaluate for the presence of flow in the right carotid and to characterize the severity of disease on left side. Alfred Abraham MD Objective Remarks GENERAL: Obese female lying in bed. Looks weak CARDIOVASCULAR: Regular rate and rhythm without murmurs, gallops, or rubs. RESPIRATORY: Clear to auscultation. Breath sounds equal bilaterally. No wheezes , rales, or rhonchi. GASTROINTESTINAL: Abdomen soft, non-tender, nondistended. No guarding. MUSCULOSKELETAL: Right lower extremity in a cast no gross deformities or ecchymoses. NEUROLOGICAL: Awake and alert. Cranial nerves II through XII intact. Motor and sensory grossly within normal limits. Normal speech. Procedures ORIF malleolar fx A/P Problem List: (1) Trimalleolar fracture ICD Code: S82.853A - Displaced trimalleolar fracture of unspecified lower leg, initial encounter for closed fracture Status: Acute (2) Near syncope ICD Code: R55 - Syncope and collapse Status: Acute (3) Fall ICD Code: W19.XXXA - Unspecified fall, initial encounter Status: Acute Assessment and Plan 82-year-old female with past medical history significant for hypertension and hyperlipidemia presents after syncopal episode where she sustained a trimalleolar fracture. Trimalleolar fracture of right extremity status post repair. Stable continue postoperative care with pain management with Lortab and IV morphine sulfate, PT , wound care and DVT prophylaxis with SCD. Syncopal episode 2/2 orthostatic secondary to dehydration. Resolved orthostasis EKG with nonspecific ST-T wave changes. Heart rate 63. Normal sinus rhythm. Reviewed by me. Monitor on telemetry Syncopal workup negative. Unremarkable echocardiogram, brain MRI, head MRA and carotid MRA as well as EEG. Hypertension/GERD. BP improving continue Norvasc Sleep apnea continue C Pap with home settings. Wean oxygen Acute kidney injury likely secondary to dehydration. Nonoliguric. Slightly worse secondary to loose stools. IV fluid for 1 L. Avoid nephrotoxins. Constipation. Continue bowel regimen with hold parameters and monitor. Nausea: Add antiemetics, as need. Deconditioning. OOB , PT Discharge Planning Discharge to rehabilitation when arranged. She is fit to fly. She has [employer] insurance. Patient will fly back to [place] tomorrow . DC tomorrow. Discussed with the patient, nurse, charge nurse, case management, family at bedside. Problem Qualifiers (1) Trimalleolar fracture: Qualified Codes: S82.851A - Displaced trimalleolar fracture of right lower leg , initial encounter for closed fracture (2) Fall: Qualified Codes: W19.XXXA - Unspecified fall, initial encounter Radha Parekh MD Oct 03, 2017 16:06
[2017-10-03] MEDS: ATORVASTATIN 20 MG TAB PO SCH (19:49)
[2017-10-04 00:12] VITALS: BP 145/56; PULSE 74; RESP 18; TEMP 97.9; O2SAT 99
[2017-10-04 00:14] VITALS: PULSE 67
[2017-10-04 03:56] VITALS: PULSE 68
[2017-10-04 04:41] VITALS: BP 142/58; PULSE 70; RESP 18; TEMP 98.4; O2SAT 99
[2017-10-04] MEDS: ACETAMINOPHEN/HYDROcodone 325 MG/10 MG TAB PO PRN ×2 (06:36→09:17)
[2017-10-04] MEDS: amLODIPine BESYLATE 5 MG TAB PO SCH ×2 (07:34→09:37)
[2017-10-04] MEDS: PANTOPRAZOLE SOD 40 MG DELAYED RELEASE TAB PO SCH ×2 (07:34→09:37)
[2017-10-04] MEDS: DOCUSATE SODIUM 50 MG/SENNA 8.6 MG TAB PO SCH ×2 (07:34→09:37)
[2017-10-04] MEDS: POLYETHYLENE GLYCOL 17 GM PKG PO SCH ×2 (07:34→09:37)
[2017-10-04] MEDS: SODIUM CHLORIDE 0.9% FLUSH 10 ML FLUSH IV FLUSH SCH (07:34)
[2017-10-04 08:57] VITALS: O2SAT 97
[2017-10-04] MEDS: ENOXAPARIN SODIUM 40 MG/0.4 ML SYRINGE SQ SCH (09:17)
[2017-10-04] MEDS: ATORVASTATIN 20 MG TAB PO SCH (09:36)
== END 2017-10-04 09:46 | disposition home or self-care (01) | DRG 493 ==
LOC: NEPC 17:04 → NEDA 21:21 → N06A 22:49
PROVIDERS: ADMIT Hospitalist; ATTEND Hospitalist
PROC: 0QSG04Z Reposition Right Tibia with Internal Fixation Device, Open Approach (ICD-10-PCS; 2017-09-25)
PROC: 0QSJ04Z Reposition Right Fibula with Internal Fixation Device, Open Approach (ICD-10-PCS; principal; 2017-09-25 07:20)
DX: S82.851A Displaced trimalleolar fracture of right lower leg, initial encounter for closed fracture (principal); N17.9 Acute kidney failure, unspecified; E86.0 Dehydration; I10 Essential (primary) hypertension; W18.2XXA Fall in (into) shower or empty bathtub, initial encounter; Z96.641 Presence of right artificial hip joint; K21.9 Gastro-esophageal reflux disease without esophagitis; E78.5 Hyperlipidemia, unspecified; G47.30 Sleep apnea, unspecified; K59.00 Constipation, unspecified; R11.2 Nausea with vomiting, unspecified; I95.1 Orthostatic hypotension; Y93.E1 Activity, personal bathing and showering; Y92.002 Bathroom of unspecified non-institutional (private) residence as the place of occurrence of the external cause
CPT/HCPCS: 70450; 70544; 70547; 70551; 71010; 72072; 72125; 73502; 73552; 73564; 73590; 73600; 76000; 76937; 80048; 80053; 80061; 82550; 82552; 83735; 84484; 85025; 85610; 93005; 93306; 93880; 94150; 95819; 96374; 96375; 96376; C1713; J0131; J0690; J1580; J1650; J2250; J2270; J2370; J2405; J3010; J3370; J7030; J7050